=== PATIENT | male | born 1935 | race African-American/Black ===

== ENCOUNTER 2019-05-30 00:04 | Emergency (ER) | payer MEDICARE ==
[~2019-05-30] VITALS: Ht 170.2 cm; Wt 88.0 kg
[~2019-05-30 00:04] MED LIST: FAMO20TA5 PO
--- NOTE | 2019-05-30 02:27 | PHYS DOC ---
Past Medical History Past Medical History: High Cholesterol, Hypertension Past Surgical History: No Surgical History, Other Additional Past Surgical Histo: colonoscopy with polyp removal Smoking Status: Never Smoker Alcohol Use: Rarely Drug Use: None Adult General Chief Complaint Chief Complaint: Insomnia HPI HPI Patient is a 84 year old male with history of hypertension and dyslipidemia who presents with complaint of not able to fall asleep. Patient states he tried to sleep on the couch at 2100 last night and was not able to fall asleep because his left shoulder had pain and he did not have any Tylenol at home and decided to come to the hospital. Patient denies chest pain, shortness of breath, injury, focal neuro deficit, history of insomnia of the same problem, fever and chills, URI symptoms. Review of Systems Review of Systems Constitutional: Denies fever or chills [] Eyes: Denies change in visual acuity, redness, or eye pain [] HENT: Denies nasal congestion or sore throat [] Respiratory: Denies cough or shortness of breath [] Cardiovascular: No additional information not addressed in HPI [] GI: Denies abdominal pain, nausea, vomiting, bloody stools or diarrhea [] : Denies dysuria or hematuria [] Musculoskeletal: Denies back pain or joint pain [] Integument: Denies rash or skin lesions [] Neurologic: Denies headache, focal weakness or sensory changes [] Endocrine: Denies polyuria or polydipsia [] All other systems were reviewed and found to be within normal limits, except as documented in this note. Current Medications Current Medications Current Medications Medications (Trade) Dose Ordered Sig/Beau Start Time Stop Time Status Last Admin Dose Admin Acetaminophen (Tylenol) 1,000 mg 1X ONCE 05/30/19 02:30 05/30/19 02:33 DC 05/30/19 02:47 1,000 MG Allergies Allergies Allergies Coded Allergies Type Severity Reaction Last Updated Verified Penicillins Allergy Intermediate RASH 10/26/14 Yes Physical Exam Physical Exam Constitutional: Well developed, well nourished, no acute distress, non-toxic appearance. [] HENT: Normocephalic, atraumatic, bilateral external ears normal, oropharynx moist, no oral exudates, nose normal. [] Eyes: PERRLA, EOMI, conjunctiva normal, no discharge. [] Neck: Normal range of motion, no tenderness, supple, no stridor. [] Cardiovascular:Heart rate regular rhythm, no murmur [] Lungs & Thorax: Bilateral breath sounds clear to auscultation [] Extremities: No tenderness, no cyanosis, no clubbing, ROM intact, no edema. [] Neurologic: Alert and oriented X 3, normal motor function, normal sensory function, no focal deficits noted. [] Psychologic: Affect normal, judgement normal, mood normal. [] Current Patient Data Vital Signs Vital Signs Date Time Temp Pulse Resp B/P (MAP) Pulse Ox O2 Delivery O2 Flow Rate FiO2 05/30/19 00:43 98.6 84 12 148/77 (100) 96 Room Air 98.6 EKG EKG EKG interpreted by me. EKG at 0242 showed normal sinus rhythm at rate of 84, normal CT and QT intervals, right bundle branch block, RVH, no acute ST and T wave elevation. Radiology/Procedures Radiology/Procedures [] Course & Med Decision Making Course & Med Decision Making Pertinent Labs and Imaging studies reviewed. (See chart for details) Evaluation of patient inertial 84-year-old male patient with complaining of unable to fall asleep without history of insomnia. Patient denied other symptoms except for pain of the left shoulder before going to bed and running out of Tylenol. Patient denied chest pain or shortness of breath and focal neuro deficit. EKG did not show acute finding. Patient was advised to follow- up with primary care physician for evaluation of insomnia and prescription for few hydroxyzine was given. I've spoken with the patient and/or caregivers. I've explained the patient's condition, diagnosis and treatment plan based on information available to me at this time. I've answered the patient's and/or caregivers questions and addressed any concerns. The patient and/or caregivers have a good understanding the patient's diagnosis, condition and treatment plan as can be expected at this point. Vital signs have been stabilized. The patient's condition is stable for discharge from the emergency department. The patient will pursue further outpatient evaluation with her primary care provider or other designated consulting physician as outlined in the discharge instructions. Patient and/or caregivers are agreeable to this plan of care and follow-up instructions have been explained in detail. The patient and/or ca regivers have received these instructions in written format and expressed understanding of these discharge instructions. The patient and her caregivers are aware that if any significant change in condition or worsening of symptoms should prompt him to immediately return to this of the closest emergency department. If an emergent department is not readily available I would encourag e him to call 911. Leopoldo Disclaimer Leopoldo Disclaimer This electronic medical record was generated, in whole or in part, using a voice recognition dictation system. Departure Departure Impression: Primary Impression: Insomnia Disposition: HOME, SELF-CARE (At 0 244) Condition: STABLE Referrals: AIDAN BARBOSA (PCP) Patient Instructions: Insomnia Additional Instructions: Take [id number] Tylenol as needed for pain Follow-up with your primary care physician in 2-3 days for evaluation of sleep problem Return to ER if not getting better Thank you for visiting [facility]. We appreciate you trusting us with your care. If any additional problems come up don't hesitate to return to visit us. Please follow up with your primary care provider so they can plan additional care if needed and know about the problem that you had. If symptoms worsen come back to the Emergency Department. Any concerning symptoms that start such as chest pain, shortness of air, weakness or numbness on one side of the body, running high fevers or any other concerning symptoms return to the ER. Scripts Hydroxyzine Hcl (HYDROXYZINE HCL) 25 Mg Tablet 1 TAB PO QHS PRN for itching, #5 TAB Prov: TRICIA NEW MD 05/30/19 Problem Qualifiers Primary Impression: Insomnia Insomnia type: unspecified Qualified Codes: G47.00 - Insomnia, unspecified TRICIA NEW MD May 30, 2019 02:27
[2019-05-30] MEDS ORDERED: HYDR25TA PO (02:47)
[2019-05-30] MEDS: ACETAMINOPHEN 500 MG TABLET PO ONE (02:47)
[2019-05-30 03:07] VITALS: BP 163/72
--- NOTE | 2019-05-30 05:15 | EKG ---
[facility] [address] [place] [address] Test Date: 2019-05-30 Test Time: 02:42:22 Pat Name: ALISON DOMÍNGUEZ Department: Room: Gender: M [employer] Research Technician: : [id number] Requested By: TRICIA NEW Order Number: [id number] Reading MD: Measurements Intervals [place] Rate: 84 P: 48 OK: 156 QRS: 72 QRSD: 126 T: 21 QT: 366 QTc: 436 Interpretive Statements SINUS RHYTHM RIGHT BUNDLE BRANCH BLOCK RVH WITH REPOLARIZATION ABNORMALITY ABNORMAL ECG RI6.01 No previous ECG available for comparison
== END 2019-05-30 03:08 | disposition home or self-care (01) ==
LOC: ER 00:04
DX: G47.00 Insomnia, unspecified (principal); E78.00 Pure hypercholesterolemia, unspecified; I10 Essential (primary) hypertension; Z98.890 Other specified postprocedural states; Z88.0 Allergy status to penicillin
CPT/HCPCS: 93005; 99283

== ENCOUNTER → 2020-07-14 | Outpatient (CLI) | payer MEDICARE ==
[2020-05-22 15:00] VITALS: BP 186/78
[~2020-07-14] MED LIST changes: +HYDR-2761 PO; +HYDR12.58 PO; +HYDR25TA PO; +IOHEXOL 180 MG/ML 10 ML VIAL. ONE; +LISI20TA18 PO; +LOVA20TA2 PO; +MELA1TAB44 PO; +METO-239 PO; +SERT-267 PO; +TAMS0.4C97 PO; +TERA5CAP3 PO; +methylPREDNISolone ACETATE 40 MG/ML VIAL. ONE; +methylPREDNISolone ACETATE 80 MG/ML VIAL. ONE
--- NOTE | 2020-07-14 11:19 | PDOC4 ---
PROCEDURE Procedure Patient was consented for lumbar epidural steroid injection. Risks were dis cussed including but not limited to: Bleeding, infection, possibility of epidural hematoma and subsequent neurological compromise, dural puncture, headaches, spinal cord and/or nerve damage, side effects of steroid medication, and poor results regarding pain control. Patient understands and wished to proceed. Procedure is lumbar epidural steroid injection under local anesthetic using sterile prep and drape at the L5-S1 level using C-arm fluoroscopic guidance in both AP and lateral views medications injected is 120 mg Depo-Medrol +10mL preservative-free normal saline and 2 mL contrast- condition at discharge is stable patient tolerated procedure well had no complications. PRASANTH MAY MD July 14, 2020 11:19
--- NOTE | 2020-07-14 11:19 | PDOC1 ---
INITIAL PAIN CONSULT DATE OF SERVICE: DOS: DATE: 07/14/20 TIME: 11:14 CHIEF COMPLAINT: Chief Complaint: Low back and right lower extremity pain HISTORY OF PRESENT ILLNESS: 85-year-old male presents with history of pain low back right lower extremity with walking for about the past month not result of any specific injury or accident that he is aware of is getting worse in the right low back in the posterior gluteus posterior thigh posterior calf especially is where the pain present in the calf itself patient has had full work-up with ultrasound as well as neurosurgical consultation MRI scan and CT scan lumbar spine MRI showing L5- S1 disc bulge and a left-sided synovial cyst with gap measuring 0.8 x 2.7 cm with severe canal narrowing. Patient MRI shows nerve root compression moderate right and mild left neuroforaminal narrowing at the L5-S1 level. Patient reports is worse with walking and standing much better with sitting or laying down generally does not awaken from sleep at night does not affect his bowel bladder control but does affect his ability to walk significantly patient is doing some exercising and stretching which tends to help the pain but only mini reuben patient rates his disability rating 0-10 10 being worst is a 6-7 with family home responsibilities 7-8 with recreation social activity occupation sexual behavior life support activities and self-care activities. Patient been taking [id number] Motrin which does help mildly as well. Patient reports no loss of motor function but significant fatigability with standing walking patient can rest for about 5 to 10 minutes after he sits down the pain is gone and the cycle starts again when he begins walking. PAST MEDICAL HISTORY: PMH: Arthritis, hypertension PREVIOUS SURGERIES: Past Surgical Hx: None CURRENT MEDICATIONS: Current Meds: Active Scripts Medications Dose Route/Sig Max Daily Dose Days Date Category Melatonin 1 Mg Tablet 1 Tab PO QHS 30 07/14/20 Reported Flomax (Tamsulosin Hcl) 0.4 Mg Cap.er.24h 0.4 Mg PO QHS 90 05/22/20 Rx Terazosin Hcl 5 Mg Capsule 5 Mg PO DAILY 05/20/20 Reported Metoprolol Succinate ( Xl ) (Metoprolol Succinate) 25 Mg Tab.er.24h 50 Mg PO DAILY 05/20/20 Reported Hydrochlorothiazide Tablet (Hydrochlorothiazide) 12.5 Mg Tablet 12.5 Mg PO QAM 05/20/20 Reported Lisinopril 20 Mg Tablet 20 Mg PO DAILY 05/20/20 Reported Lovastatin 20 Mg Tablet 20 Mg PO QHS 05/20/20 Reported ALLERGIES; Allergies: Coded Allergies: Penicillins (Verified Allergy, Intermediate, RASH, 10/26/14) aspirin (Verified Adverse Reaction, Mild, Nausea, 07/14/20) FAMILY HISTORY: Family Hx: No major medical problems that he is aware of SOCIAL HISTORY: Social Hx: Patient is nondrug alcohol does not smoke not use any illegal illicit recreational drugs is single lives locally in [facility] and reports he is currently retired. REVIEW OF SYSTEMS: ROS: Positive for those items mentioned in history of present illness, all systems are reviewed, otherwise negative ,and are complete full and well-documented on patient's chart. PHYSICAL EXAM: VS: Blood pressure is 160/77 pulse 69 respirations 18 temperature 98.6 F height is 5 foot 7 and half inches weight is 185 pounds PE: PHYSICAL EXAMINATION: GENERAL: The patient is awake, alert, oriented, appropriate, very pleasant demeanor HEENT: Shows normocephalic, atraumatic. Extraocular movements are intact and symmetrical. Oral cavity: Mucous membranes moist and pink. Dentition is intact. NECK: Shows anterior throat supple without palpable lymphadenopathy noted. Swallow reflex symmetrical. CHEST: Shows normal on inspection. Breath sounds are clear bilaterally, no rales rhonchi wheezes auscultated. HEART: Shows S1, S2 clear. No murmurs auscultated. ABDOMEN: Soft, nontender, nondistended, obese. No palpable organomegaly is noted. No rebound or guarding demonstrated. BACK: Shows spine grossly in the midline. Normal-appearing cervical lordotic curvature. There is slightly increased thoracic kyphosis, some flattening of the lumbar lordotic curvature. No previous surgical scarring is noted. Lumbar paraspinous muscles show symmetrical on inspection, on palpation shows some moderate tenderness diffusely throughout the upper, middle and lower distribution of the paraspinous muscles bilaterally and also into the lower thoracic paraspinous musculature, firm and tender, but without specific trigger points, without radiation of pain. The patient has good rotational motion of the lumbar spine, both laterally as well as extension and flexion without significant difficulty. No tenderness over the spinous processes, sacrum or sacroiliac regions. EXTREMITIES: Lower extremities show deep tendon reflexes 2+ in the patellar and tendo calcaneus tendons. Motor exam is 5 on a scale of 5 with right dorsif lexion, extension, quadriceps and hamstring flexion and 5/5 on the left. Peripheral pulses are 1+ posterior tibial. No peripheral edema is noted bilaterally. Lower extremities are warm and dry to touch, equal in color and appearance. Straight leg raise noted to be positive on the right about 45 degrees, left side is negative. Gaenslen's and Zeus's maneuvers are negative bilaterally as well. The patient is able to stand, stand on his toes without significant difficulty or loss of balance, walks with a slight favoring gait does appear to favor the right lower extremity however is not using any assistive device such as canes or walkers to ambulate. SKIN: Shows warm and dry, good turgor. No edema. No sores, rashes or bruising throughout. IMPRESSION: Impression: 85-year-old male with 1 month history increasing pain low back right lower extremity radicular fashion MRI scan lumbar spine as noted Arthritis Hypertension Plan: Options were discussed with the patient including conservative medical management physical therapies and interventional techniques. Patient elects interventional techniques, we discussed a lumbar epidural steroid injection using descriptions as well as anatomical models described procedure. Risks were discussed including but not limited to: Bleeding, infection, possibility of epidural hematoma and subsequent neurological compromise, dural puncture, headaches, spinal cord and/or nerve damage, side effects of steroid medication, and poor results regarding pain control. Patient understands and wished to proceed. Patient will return to clinic in approximately 2 weeks for follow-up, was counseled as return appointment, activity level, and side effects to be aware of. Procedure is lumbar epidural steroid injection under local anesthetic using sterile prep and drape at the 5 S1 level using C-arm fluoroscopic guidance in both AP and lateral views medications injected is 120 mg Depo-Medrol +10mL preservative-free normal saline and 2 mL contrast- condition at discharge is stable patient tolerated procedure well had no complications. PRASANTH MAY MD July 14, 2020 11:19
== END | disposition home or self-care (01) ==
LOC: PNCL 09:48
PROVIDERS: ATTEND Anesthesiology
DX: M54.5 Low back pain (principal); M79.604 Pain in right leg; M19.90 Unspecified osteoarthritis, unspecified site; I10 Essential (primary) hypertension; E78.00 Pure hypercholesterolemia, unspecified; N40.0 Benign prostatic hyperplasia without lower urinary tract symptoms; F41.9 Anxiety disorder, unspecified; Z79.899 Other long term (current) drug therapy; Z98.890 Other specified postprocedural states; Z88.0 Allergy status to penicillin; Z88.8 Allergy status to other drugs, medicaments and biological substances
CPT/HCPCS: 62323; J1030; J1040; Q9965

== ENCOUNTER → 2020-07-28 | Outpatient (CLI) | payer MEDICARE ==
[2020-05-22 15:00] VITALS: BP 186/78
--- NOTE | 2020-07-28 11:22 | PDOC ---
Progress Note - Pain Clinic Date of Service: DOS: DATE: 07/28/20 TIME: 11:19 Diagnosis: Dx: Lumbar radiculopathy with lumbar degenerative disc disease and lumbar spinal stenosis History or Present Illness: HPI: 85-year-old male returns for follow-up status post lumbar epidural steroid injection x1. Patient reports about 70% improvement in low back and right lower extremity pain patient reports still some pain in the low back and right leg but much better than it was he is increase his activity distance walking household activities travel with greater ease and comfort sleeping better at night as well. Patient reports no new motor or sensory deficits describes the pain as 8 on scale 10 is worse over the past week 8 on average 7 its least is 8 today patient describes sharp and tingling burning at times worse in the morning off-and-on intensity better with sitting or laying down worse with walking isidro ding and weightbearing. Patient reports no new motor or sensory deficits no new bowel or bladder incontinence or other complaints. Physical Exam: VS: Blood pressure is 164/80 pulse 63 respirations 18 temperature is 98.3 F height is 5 feet 7 inches weight is 186 pounds PE: PHYSICAL EXAMINATION: GENERAL: The patient is awake, alert, oriented, appropriate, very pleasant demeanor HEENT: Shows normocephalic, atraumatic. Extraocular movements are intact and symmetrical. Oral cavity: Mucous membranes moist and pink. NECK: Shows anterior throat supple without palpable lymphadenopathy noted. Swallow reflex symmetrical. CHEST: Shows normal on inspection. Breath sounds are clear bilaterally. HEART: Shows S1, S2 clear. No murmurs auscultated. ABDOMEN: Soft, nontender, nondistended, obese. No palpable organomegaly is noted. BACK: Shows spine grossly in the midline. Normal-appearing cervical lordotic curvature. There is slightly increased thoracic kyphosis, some minor flattening of the lumbar lordotic curvature. Lumbar paraspinous muscles show symmetrical on inspection, on palpation shows some moderate tenderness diffusely throughout the upper, middle and lower distribution of the paraspinous muscles without specific trigger points, without radiation of pain. The patient has good rotational motion of the lumbar spine, both laterally as well as extension and flexion without significant difficulty. EXTREMITIES: Lower extremities show deep tendon reflexes 2 in the patellar and tendo calcaneus tendons. Motor exam is 5 on a scale of 5 with right dorsiflexion, extension, quadriceps and hamstring flexion and 5/5 on the left. Peripheral pulses are 1 posterior tibial. No peripheral edema is noted bilaterally. Lower extremities are warm and dry to touch, equal in color and appearance. SKIN: Shows warm and dry, good turgor. No edema. No sores, rashes or bruising throughout. Procedure: Procedure: Options were discussed with the patient. Patient's old chart was reviewed his his current medication regimen updated current review of systems updated today as well. We will proceed with a second in a series lumbar epidural steroid injection today with fluoroscopic guidance. Risks were discussed including but not limited to: Bleeding, infection, possibility of epidural hematoma and subsequent neurological compromise, dural puncture, headaches, spinal cord and/or nerve damage, side effects of steroid medication, and poor results regarding pain control. Patient understands and wished to proceed. Patient will return to the clinic in approximate 2 weeks for follow-up, was counseled as return appointment, activity level, and side effects beware of. Medication Injected: Med Injected: Procedure is lumbar epidural steroid injection under local anesthetic using sterile prep and drape at the L5-S1 level using C-arm fluoroscopic guidance in both AP and lateral views medications injected is 120 mg Depo-Medrol +10mL preservative-free normal saline and 2 mL contrast- condition at discharge is stable patient tolerated procedure well had no complications. Condition at Discharge: Condition at Discharge: Condition at discharge stable, patient tolerated the procedure well and had no complications. PRASANTH MAY MD Jul 28, 2020 11:22
--- NOTE | 2020-07-28 11:23 | PDOC4 ---
PROCEDURE Procedure Patient is consented for lumbar epidural steroid injection. Risks were disc ussed including but not limited to: Bleeding, infection, possibility of epidural hematoma and subsequent neurological compromise, dural puncture, headaches, spinal cord and/or nerve damage, side effects of steroid medication, and poor results regarding pain control. Patient understands and wished to proceed. Procedure is lumbar epidural steroid injection under local anesthetic using sterile prep and drape at the L5-S1 level using C-arm fluoroscopic guidance in both AP and lateral views medications injected is 120 mg Depo-Medrol +10mL preservative-free normal saline and 2 mL contrast- condition at discharge is stable patient tolerated procedure well had no complications. PRASANTH MAY MD Jul 28, 2020 11:23
== END | disposition home or self-care (01) ==
LOC: PNCL 09:56
PROVIDERS: ATTEND Anesthesiology
DX: M51.16 Intervertebral disc disorders with radiculopathy, lumbar region (principal); M48.061 Spinal stenosis, lumbar region without neurogenic claudication; I10 Essential (primary) hypertension; E78.00 Pure hypercholesterolemia, unspecified; N40.0 Benign prostatic hyperplasia without lower urinary tract symptoms; F41.9 Anxiety disorder, unspecified; Z79.899 Other long term (current) drug therapy; Z88.0 Allergy status to penicillin; Z88.8 Allergy status to other drugs, medicaments and biological substances
CPT/HCPCS: 62323; J1030; J1040; Q9965

== ENCOUNTER 2020-10-20 09:46 | Inpatient (IN) | payer MEDICARE ==
[~2020-10-20] VITALS: Ht 171.4 cm; Wt 78.1 kg
[~2020-10-20 09:46] MED LIST changes: -IOHEXOL 180 MG/ML 10 ML VIAL. ONE; -methylPREDNISolone ACETATE 40 MG/ML VIAL. ONE; -methylPREDNISolone ACETATE 80 MG/ML VIAL. ONE
[2020-10-20] MEDS ORDERED: IV RINGERS,LACTATED 1000ML 1,000 ML IV SCH (10:15)
[2020-10-20 10:25] LABS: BASO # 0.1 x10^3/uL (0.0-0.2); BASO % 1 % (0-3); EOS % 0 % (0-3); HEMATOCRIT 42.8 % (39.0-53.0); LYMPH # 1.2 x10^3/uL (1.0-4.8); LYMPH % 13 % (24-48); MEAN CORPUSCULAR HEMOGLOBIN 24 pg (25-35); MEAN CORPUSCULAR HGB CONC 33 g/dL (31-37); MEAN CORPUSCULAR VOLUME 74 fL (79-100); MONO # 1.3 x10^3/uL (0.0-1.1); MONO % 15 % (0-9); NEUT # 6.3 x10^3/uL (1.8-7.7); NEUT % 71 % (31-73); PLATELET COUNT 294 x10^3/uL (140-400); RED BLOOD COUNT 5.83 x10^6/uL (4.30-5.70); RED CELL DISTRIBUTION WIDTH 14.8 % (11.5-14.5); WHITE BLOOD COUNT 8.9 x10^3/uL (4.0-11.0)
--- NOTE | 2020-10-20 10:29 | PHYS DOC ---
Past Medical History Past Medical History: Anxiety, Depression, High Cholesterol, Hypertension Additional Past Medical Histor: Enlarged prostate Past Surgical History: No Surgical History, Other Additional Past Surgical Histo: colonoscopy with polyp removal Smoking Status: Never Smoker Alcohol Use: None Drug Use: None General Adult EDM: Chief Complaint: PAIN ON URINATION HPI: HPI: 85-year-old male with a history of UTI requiring inpatient admission in April 2020 presents the emergency department complaining of difficulty with urination for the past several weeks. He denies any abdominal pain or suprapubic pain with this difficulty with urination. Upon triage vitals, he was found to be tachycardic into the 150s to 160s. He denies any chest pain, palpitations, shortness of breath, syncope, fatigue or any other symptom. Review of Systems: Review of Systems: Constitutional: Denies fever or chills. Eyes: Denies change in vision, pain. HENT: Denies congestion or sore throat. Respiratory: Denies cough or shortness of breath. Cardiovascular: Denies chest pain or edema. GI: Denies abdominal pain, nausea. : Admits to dark urine, difficulty with urination, denies blood. Musculoskeletal: Denies extremity pain, or trauma. Skin: Denies rash, skin change. Neurologic: Denies headache, focal weakness. Psychiatric: Denies depression or anxiety. All other systems reviewed as negative except for what was mentioned in the HPI. Heart Score: C/O Chest Pain: No Allergies: Allergies: Allergies Coded Allergies Type Severity Reaction Last Updated Verified Penicillins Allergy Intermediate RASH 10/26/14 Yes aspirin Adverse Reaction Mild Nausea 07/14/20 Yes Physical Exam: PE: Constitutional: No acute distress, non-toxic appearance. HENT: Atraumatic, bilateral external ears normal, nose normal. Eyes: PERRLA, EOMI, conjunctiva normal, no discharge. Neck: Normal range of motion, supple, no stridor. Cardiovascular: Heart tachycardic and regular, 2+ radial pulses Lungs & Thorax: No respiratory distress, symmetrical expansion. Bilateral breath sounds clear to auscultation Abdomen: Soft, no tenderness Skin: Warm, dry. Extremities: No tenderness, no cyanosis, ROM intact, no edema. Neurologic: Alert and oriented X 3, normal motor function, normal sensory function, no focal deficits noted. Non ataxic gait. GCS 15. Psychologic: Affect normal, judgment normal, mood normal. Current Patient Data: Labs: Laboratory Tests Test 10/20/20 10:13 10/20/20 10:20 White Blood Count 8.9 x10^3/uL (4.0-11.0) Red Blood Count 5.83 x10^6/uL (4.30-5.70) Hemoglobin 14.0 g/dL (13.0-17.5) Hematocrit 42.8 % (39.0-53.0) Mean Corpuscular Volume 74 fL (79-100) Mean Corpuscular Hemoglobin 24 pg (25-35) Mean Corpuscular Hemoglobin Concent 33 g/dL (31-37) Red Cell Distribution Width 14.8 % (11.5-14.5) Platelet Count 294 x10^3/uL (140-400) Neutrophils (%) (Auto) 71 % (31-73) Lymphocytes (%) (Auto) 13 % (24-48) Monocytes (%) (Auto) 15 % (0-9) Eosinophils (%) (Auto) 0 % (0-3) Basophils (%) (Auto) 1 % (0-3) Neutrophils # (Auto) 6.3 x10^3/uL (1.8-7.7) Lymphocytes # (Auto) 1.2 x10^3/uL (1.0-4.8) Monocytes # (Auto) 1.3 x10^3/uL (0.0-1.1) Eosinophils # (Auto) 0.0 x10^3/uL (0.0-0.7) Basophils # (Auto) 0.1 x10^3/uL (0.0-0.2) Sodium Level 138 mmol/L (136-145) Potassium Level 3.9 mmol/L (3.5-5.1) Chloride Level 99 mmol/L (98-107) Carbon Dioxide Level 28 mmol/L (21-32) Anion Gap 11 (6-14) Blood Urea Nitrogen 36 mg/dL (8-26) Creatinine 1.4 mg/dL (0.7-1.3) Estimated GFR (Cockcroft-Gault) 58.3 Glucose Level 146 mg/dL (70-99) Calcium Level 9.2 mg/dL (8.5-10.1) Magnesium Level 2.6 mg/dL (1.8-2.4) Troponin I Quantitative 0.075 ng/mL (0.000-0.055) JR-Ams-J-Type Natriuretic Peptide 5459 pg/mL (0-449) Thyroid Stimulating Hormone (TSH) 0.694 uIU/mL (0.358-3.74) Urine Collection Type U cath Urine Color Jahaira Urine Clarity Turbid Urine pH 8.0 (<5.0-8.0) Urine Specific [place] 1.015 (1.000-1.030) Urine Protein >=300 mg/dL (NEG-TRACE) Urine Glucose (UA) Negative mg/dL (NEG) Urine Ketones (Stick) 15 mg/dL (NEG) Urine Blood Moderate (NEG) Urine Nitrite Positive (NEG) Urine Bilirubin Negative (NEG) Urine Urobilinogen Dipstick 1.0 mg/dL (0.2 mg/dL) Urine Leukocyte Esterase Large (NEG) Urine RBC Field obscured /HPF (0-2) Urine WBC Tntc /HPF (0-4) Urine Squamous Epithelial Cells None /LPF Urine Bacteria Few /HPF (0-FEW) Vital Signs: Vital Signs Date Time Temp Pulse Resp B/P (MAP) Pulse Ox O2 Delivery O2 Flow Rate FiO2 10/20/20 09:52 98.2 163 17 130/84 (114) 98 Room Air 98.2 EKG: EK: Atrial flutter rate of 161, [No ST-T wave changes], occasional PVC. Impression: Atrial flutter with 2-1 conduction interpreted by nv, Zeus Reyes D.O. also discussed with on-call billet driller Dr. Arteaga 1132: Atrial flutter rate of 97, appears to be 3 1 conduction. No further ischemic signs. No STEMI Radiology/Procedures: Radiology/Procedures: PROCEDURE: PORTABLE CHEST 1V EXAM: Chest, single view. HISTORY: Supraventricular tachycardia. COMPARISON: 10/26/2014 FINDINGS: A frontal view of the chest is obtained. There is no infiltrate, pleural effusion or pneumothorax. There is cardiomegaly. IMPRESSION: Cardiomegaly. Electronically signed by: Christina Morgan MD (10/20/2020 10:35 AM) Course & Med Decision Making: Course & Med Decision Making Patient was found to be in 2-1 atrial flutter upon initial EKG. I consulted the billet driller Dr. Arteaga who believes that this is a flutter. Patient was given diltiazem which transiently lowered his heart rate down to 120. His blood pressure remained stable. He was given an additional bolus of diltiazem which dropped his heart rate to 100s and then he eventually went back up to the 150s. Repeat EKG shows further atrial flutter pattern as above. Patient was given metoprolol 5 mg IV bolus with heart rate down to 100. I discussed the case with Dr. Evangelista who will admit the patient to the hospital. Patient was also given antibiotics (Levaquin) for urinary tract infection which per chart review patient was admitted to the hospital in April of this year for. Patient was asymptomatic from his atrial flutter and did not have any episodes of chest pain or typical symptoms for ACS. Troponin elevation is likely secondary to tachycardia and demand ischemia Critical care time was 35 minutes which includes time at bedside, spent in discussion of patient's care with specialists and/or family members, with interpretation of laboratory and/or radiological studies and is exclusive of procedures. My Orders - ZEUS REYES DO Procedure Category Date Status Time Basic Metabolic Panel LAB 10/20/20 Complete 10:13 Cbc W Autodiff LAB 10/20/20 Complete 10:13 Magnesium LAB 10/20/20 Complete 10:13 Thyroid Stim Hormone LAB 10/20/20 Complete (Tsh) 10:13 Portable Chest 1v RAD 10/20/20 Resulted 10:13 Nt-Pro Bnp LAB 10/20/20 Complete 10:13 Troponini LAB 10/20/20 Complete 10:13 Troponini LAB 10/20/20 Logged 13:13 Troponini LAB 10/20/20 Logged 16:13 Iv Ringers,Lactated PHA 10/20/20 Complete 1000ml (Iv Lactated 10:15 Suh Cath Insertion ER 10/20/20 Transmitted Diltiazem Iv Push PHA 10/20/20 Complete (Cardizem Iv Push) 10:30 Cardiology Consult CONS 10/20/20 Transmitted 10:23 Ua, Cult If Indicated LAB 10/20/20 Complete 10:29 Diltiazem Iv Push PHA 10/20/20 Complete (Cardizem Iv Push) 11:00 Diltiazem Iv Push PHA 10/20/20 Complete (Cardizem Iv Push) 11:00 Urine Culture TABITHA 8/24/21 In Process 10:59 Levofloxacin Per PHA 10/20/20 In Process Pharmacy (Levaquin Per 11:15 Levofloxacin 250mg PHA 10/20/20 In Process Premix (Levaquin 250m 12:00 Diltiazem Hcl PHA 10/20/20 In Process (Cardizem) 12:00 Metoprolol Iv Push PHA 10/20/20 Complete (Lopressor Vial) 12:00 Departure Departure Impression: Primary Impression: Atrial flutter with rapid ventricular response Additional Impression: UTI (urinary tract infection) Disposition: ADMITTED INPATIENT Admitting Physician: JOSE (Jean Carlos) Condition: IMPROVED Referrals: AIDAN BARBOSA (PCP) ZEUS REYES DO Oct 20, 2020 10:29
[2020-10-20 10:36] LABS: CALCIUM 9.2 mg/dL (8.5-10.1); CREATININE 1.4 mg/dL (0.7-1.3); GFR 58.3; MAGNESIUM 2.6 mg/dL (1.8-2.4); POTASSIUM 3.9 mmol/L (3.5-5.1)
--- NOTE | 2020-10-20 10:37 | RAD ---
EXAM: Chest, single view. HISTORY: Supraventricular tachycardia. COMPARISON: 10/26/2014 FINDINGS: A frontal view of the chest is obtained. There is no infiltrate, pleural effusion or pneumo thorax. There is cardiomegaly. IMPRESSION: Cardiomegaly. Electronically signed by: Christina Morgan MD (10/20/2020 10:35 AM) [id number]
[2020-10-20 10:45] LABS: BILIRUBIN,URINE NEGATIVE (NEG); CLARITY,URINE TURBID; COLOR,URINE AMBER; NITRITE,URINE POSITIVE (NEG); PROTEIN,URINE >=300 mg/dL (NEG-TRACE)
[2020-10-20 10:58] LABS: RBC,URINE FIELD OBSCURED /HPF (0-2); WBC,URINE TNTC /HPF (0-4)
[2020-10-20 10:59] LABS: BACTERIA,URINE FEW /HPF (0-FEW)
[2020-10-20] MEDS ORDERED: levOFLOXacin PER PHARMACY. MC PRN (11:15)
[2020-10-20] MEDS ORDERED: METOPROLOL IV PUSH 5 MG/5 ML VIAL. IVP ONE ×2 (12:00→16:30)
--- NOTE | 2020-10-20 12:22 | PDOC2 ---
[facility] S[facility] LINE 10/20/20 1221: CARDIAC CONSULT DATE OF CONSULT Date of Consult DATE: 10/20/20 TIME: 12:20 REASON FOR CONSULT Reason for Consult: aflutter REFERRING PHYSICIAN Referring Physician: Dr. Reyes SOURCE Source: Chart review, Patient HISTORY OF PRESENT ILLNESS HISTORY OF PRESENT ILLNESS This is an 85 yo male who presented secondary to difficulty urinating for the last couple of weeks. Was noted in a-flutter with RVR upon arrival, which prompted this consult. Patient denies any chest pain, palpitations, dizziness, diaphoresis. Denies any history of AFIB. Had event monitor in 2019 that did not show any AFIB/flutter. PAST MEDICAL HISTORY Cardiovascular: HTN, Hyperlipidemia Psych: Anxiety Renal/: Benign prostatic enlarg. PAST SURGICAL HISTORY Past Surgical History: No pertinent history FAMILY HISTORY Family History: Hypertension SOCIAL HISTORY Smoke: Quit ALCOHOL: none Drugs: None Lives: Alone CURRENT MEDICATIONS CURRENT MEDICATIONS Current Medications Medications (Trade) Dose Ordered Sig/Beau Route PRN Reason Start Time Stop Time Status Last Admin Dose Admin Ringer's Solution 1,000 ml @ 1,000 mls/hr Q1H IV 10/20/20 10:15 10/20/20 11:14 DC 10/20/20 10:35 Diltiazem HCl (Cardizem Iv Push) 10 mg 1X ONCE IVP 10/20/20 10:30 10/20/20 10:31 DC 10/20/20 10:37 Diltiazem HCl (Cardizem Iv Push) 15 mg 1X ONCE IVP 10/20/20 11:00 10/20/20 11:01 DC 10/20/20 11:20 Levofloxacin/ Dextrose 50 ml @ 50 mls/hr Q24H IV 10/20/20 12:00 10/20/20 12:07 Metoprolol Tartrate (Lopressor Vial) 5 mg 1X ONCE IVP 10/20/20 12:00 10/20/20 12:01 DC 10/20/20 12:07 ALLERGIES ALLERGIES: Coded Allergies: Penicillins (Verified Allergy, Intermediate, RASH, 10/26/14) aspirin (Verified Adverse Reaction, Mild, Nausea, 07/14/20) ROS Review of System 14 point ROS conducted with pertinent positives noted above in HPI PHYSICAL EXAM General: Alert, Oriented X3, Cooperative, No acute distress HEENT: Atraumatic Lungs: Clear to auscultation Heart: Other (aflutter) Abdomen: Soft, No tenderness Extremities: No edema, Normal pulses Skin: No significant lesion Neuro: Normal speech, Sensation intact Psych/Mental Status: Mental status NL, Mood NL MUSCULOSKELETAL: Osteoarthritic changes both hands VITALS/I&O VITALS/I&O: Vital Signs Date Time Temp Pulse Resp B/P (MAP) Pulse Ox O2 Delivery O2 Flow Rate FiO2 10/20/20 12:07 121 144/65 10/20/20 11:25 20 96 10/20/20 09:52 98.2 Room Air 98.2 LABS Lab: Laboratory Tests Test 10/20/20 10:13 10/20/20 10:20 White Blood Count 8.9 x10^3/uL (4.0-11.0) Red Blood Count 5.83 x10^6/uL (4.30-5.70) H Hemoglobin 14.0 g/dL (13.0-17.5) Hematocrit 42.8 % (39.0-53.0) Mean Corpuscular Volume 74 fL (79-100) L Mean Corpuscular Hemoglobin 24 pg (25-35) L Mean Corpuscular Hemoglobin Concent 33 g/dL (31-37) Red Cell Distribution Width 14.8 % (11.5-14.5) H Platelet Count 294 x10^3/uL (140-400) Neutrophils (%) (Auto) 71 % (31-73) Lymphocytes (%) (Auto) 13 % (24-48) L Monocytes (%) (Auto) 15 % (0-9) H Eosinophils (%) (Auto) 0 % (0-3) Basophils (%) (Auto) 1 % (0-3) Neutrophils # (Auto) 6.3 x10^3/uL (1.8-7.7) Lymphocytes # (Auto) 1.2 x10^3/uL (1.0-4.8) Monocytes # (Auto) 1.3 x10^3/uL (0.0-1.1) H Eosinophils # (Auto) 0.0 x10^3/uL (0.0-0.7) Basophils # (Auto) 0.1 x10^3/uL (0.0-0.2) Sodium Level 138 mmol/L (136-145) Potassium Level 3.9 mmol/L (3.5-5.1) Chloride Level 99 mmol/L (98-107) Carbon Dioxide Level 28 mmol/L (21-32) Anion Gap 11 (6-14) Blood Urea Nitrogen 36 mg/dL (8-26) H Creatinine 1.4 mg/dL (0.7-1.3) H Estimated GFR (Cockcroft-Gault) 58.3 Glucose Level 146 mg/dL (70-99) H Calcium Level 9.2 mg/dL (8.5-10.1) Magnesium Level 2.6 mg/dL (1.8-2.4) H Troponin I Quantitative 0.075 ng/mL (0.000-0.055) RJ-Upx-V-Type Natriuretic Peptide 5459 pg/mL (0-449) H Thyroid Stimulating Hormone (TSH) 0.694 uIU/mL (0.358-3.74) Urine Collection Type U cath Urine Color Jahaira Urine Clarity Turbid Urine pH 8.0 (<5.0-8.0) Urine Specific [place] 1.015 (1.000-1.030) Urine Protein >=300 mg/dL (NEG-TRACE) Urine Glucose (UA) Negative mg/dL (NEG) Urine Ketones (Stick) 15 mg/dL (NEG) Urine Blood Moderate (NEG) Urine Nitrite Positive (NEG) Urine Bilirubin Negative (NEG) Urine Urobilinogen Dipstick 1.0 mg/dL (0.2 mg/dL) Urine Leukocyte Esterase Large (NEG) Urine RBC Field obscured /HPF (0-2) Urine WBC Tntc /HPF (0-4) Urine Squamous Epithelial Cells None /LPF Urine Bacteria Few /HPF (0-FEW) Laboratory Tests 10/20/20 10:13 Laboratory Tests 10/20/20 10:13 ECHOCARDIOGRAM ECHOCARDIOGRAM 06/28/16 - TREADMILL EXERCISE ECHOCARDIOGRAM W/2-D + DOPPLER ECHO Interpretation Summary Baseline Echocardiogram The left ventricle is normal in size and function, estimated ejection fraction is 60%. Mild diastolic dysfunction The right ventricle is normal in size and function. Mild dilated left atrium, moderately dilated right atrium No significant valve disease is identified. Inadequate tricuspid regurgitation signal, unable to accurately estimate PA systolic pressure with this study. Stress Test Fair exercise capacity. Patient reported no symptoms of chest discomfort during exercise or recovery Appropriate blood pressure during stress and recovery, blunted heart rate response (on beta mor) The patient did not reach target of 85% maximum predicted heart rate which limits sensitivity of this study. No diagnostic ST-segment changes during stress or recovery Normal hyperdynamic response of all myocardial segments at peak. Negative exercise stress echo without evidence of inducible ischemia. STRESS TEST STRESS TEST LOW DOSE/HIGH DOSE REST/STRESS REGADENOSON N-13 AMMONIA PET/CT Date 04/23/2019 IMPRESSION Unremarkable rest/ stress N13 ammonia myocardial perfusion PET/CT scan with normal global function and perfusion without evidence of stress induced myocardial ischemia. ASSESSMENT/PLAN ASSESSMENT/PLAN 1. BPH, urinary retention, UTI; as per IM 2. Aflutter with RVR; new finding. Rate better controlled s/p Cardizem, metoprolol. Stress test 04/18 without evidence of ischemia as noted above 3. Mild troponin elevation; initial 0.07. Most probably type II, demand ischemia. CP free 4. Hypertension; controlled 5. Hyperlipidemia 6. JERRY; s/p IVFs 7. Chronic RBBB Recommendations Trend trop Lipids, TSH Echo to assess LV systolic function Increase metoprolol for rate control Lovenox x1 now [id number] 3 correlating with a 3.2% risk for stroke per year. Recommend low dose Eliquis for stroke prophylaxis Supportive care OJ WALSH MD 10/20/20 1838: CARDIAC CONSULT ASSESSMENT/PLAN ASSESSMENT/PLAN The patient was seen and interviewed as well as examined at the bedside. The chart was reviewed. The case was discussed. Agree with the plan of care. WOOD ELDER APRN Oct 20, 2020 12:21 OJ WALSH MD Oct 20, 2020 18:38
[2020-10-20] MEDS ORDERED: DEXTROSE 50% 25 GM / 50ML DISP.SYRIN. IV PRN (15:30)
[2020-10-20] MEDS ORDERED: SENNOSIDES 8.6 MG TABLET PO PRN (15:30)
[2020-10-20] MEDS ORDERED: ONDANSETRON PF 4 MG/2 ML VIAL. IVP PRN (15:30)
[2020-10-20] MEDS ORDERED: DOCUSATE SODIUM 100 MG CAPSULE. PO PRN (15:30)
[2020-10-20] MEDS ORDERED: PROCHLORPERAZINE 10 MG/2 ML VIAL. IV PRN (15:30)
[2020-10-20] MEDS ORDERED: IV NORMAL SALINE 1000ML BAG 1,000 ML IV ONE (15:30)
--- NOTE | 2020-10-20 15:34 | PDOC1 ---
History and Physical Date of Service: DOS: DATE: 10/20/20 TIME: 15:25 Chief Complaint: Chief Complain: Urinary complaints History of Present Illness: HPI: 85-year-old male with past medical history of depression, anxiety, dyslipidemia and BPH who presents to the ED with complaints of difficulty urinating. This has been occurring for the last several weeks. Patient complains of burning upon urination but denies any suprapubic tenderness or abdominal pain. Denies any hematuria, bloody stools, chest pain, shortness of breath or headaches or syncope. Upon arrival to the ED patient was found to have elevated heart rate to the 160s. Telemonitoring and EKG did showed atrial flutter. Cardiology was consulted. Patient was given several doses of diltiazem boluses and there was some improvement down to the 120s. Eventually patient was kept on diltiazem drip. Past Medical/Surgical History: PMH/PSH: Past Medical History: Anxiety, Depression, High Cholesterol, Hypertension, Enlarged prostate Past Surgical History: colonoscopy with polyp removal Allergies: Allergies: Coded Allergies: Penicillins (Verified Allergy, Intermediate, RASH, 10/26/14) aspirin (Verified Adverse Reaction, Mild, Nausea, 07/14/20) Family History: Family History: Reviewed with no relevant findings Social History: Social History: Smoking Status: Never Smoker Alcohol Use: None Drug Use: None Current Medications: Current Medications Current Medications Ringer's Solution 1,000 ml @ 1,000 mls/hr Q1H IV Last administered on 10/20/20at 10:35; Start 10/20/20 at 10:15; Stop 10/20/20 at 11:14; Status DC Diltiazem HCl (Cardizem Iv Push) 10 mg 1X ONCE IVP Last administered on 10/20/20at 10:37; Start 10/20/20 at 10:30; Stop 10/20/20 at 10:31; Status DC Diltiazem HCl (Cardizem Iv Push) 10 mg 1X ONCE IVP ; Start 10/20/20 at 11:00; Stop 10/20/20 at 10:50; Status DC Diltiazem HCl (Cardizem Iv Push) 15 mg 1X ONCE IVP Last administered on 10/20/20at 11:20; Start 10/20/20 at 11:00; Stop 10/20/20 at 11:01; Status DC Levofloxacin/ Dextrose (Levaquin Per Pharmacy) 1 each PRN DAILY PRN [facility] SEE COMMENTS; Start 10/20/20 at 11:15 Levofloxacin/ Dextrose 50 ml @ 50 mls/hr Q24H IV Last administered on 10/20/20at 12:07; Start 10/20/20 at 12:00 Diltiazem HCl 125 mg/Sodium Chloride 125 ml @ 5 mls/hr CONT PRN IV SEE I/O RECORD; Start 10/20/20 at 12:00 Metoprolol Tartrate (Lopressor Vial) 5 mg 1X ONCE IVP Last administered on 10/20/20at 12:07; Start 10/20/20 at 12:00; Stop 10/20/20 at 12:01; Status DC Active Scripts Active Flomax (Tamsulosin Hcl) 0.4 Mg Cap.er.24h 0.4 Mg PO QHS 90 Days Reported Melatonin 1 Mg Tablet 1 Tab PO QHS 30 Days Terazosin Hcl 5 Mg Capsule 5 Mg PO DAILY Metoprolol Succinate ( Xl ) (Metoprolol Succinate) 25 Mg Tab.er.24h 50 Mg PO DAILY Hydrochlorothiazide Tablet (Hydrochlorothiazide) 12.5 Mg Tablet 12.5 Mg PO QAM Lisinopril 20 Mg Tablet 20 Mg PO DAILY Lovastatin 20 Mg Tablet 20 Mg PO QHS ROS: Review of Systems Review of System REVIEW OF SYSTEMS: GENERAL: Denies weakness SKIN: No bruising, hair changes or rashes. EYES: No blurred, double or loss of vision. NOSE AND THROAT: No history of nosebleeds, hoarseness or sore throat. HEART: No history of palpitations, chest pain or shortness of breath on exertion. LUNGS: Denies cough, hemoptysis, wheezing or shortness of breath. GASTROINTESTINAL: Denies changes in appetite, nausea, vomiting, diarrhea or constipation. GENITOURINARY: Positive burning upon urination NEUROLOGIC: Denies history of numbness, tingling, or tremor. PSYCHIATRIC: No history of panic, anxiety or depression. ENDOCRINE: No history of heat or cold intolerance, polyuria or polydipsia. EXTREMITIES: Denies joint pain, pain on walking or stiffness. Physical Exam: Vital Signs: Vital Signs Date Time Temp Pulse Resp B/P (MAP) Pulse Ox O2 Delivery O2 Flow Rate FiO2 8/24/21 12:07 121 144/65 10/20/20 11:25 20 96 10/20/20 09:52 98.2 Room Air 98.2 Physcial Exam: General: Well developed, well nourished, no acute distress, well appearing HEENT: Pupils equally round and reactive to light, EOMI, no discharge, normal conjunctiva Neck: Supple, no nuchal rigidity, no JVD, trachea midline, no tenderness Cardiac: RRR, no murmurs, no gallops, no rubs. Rapid heart rate Chest/Lungs: CTAB, no wheeze, no rhonchi, no crackles Abdomen: soft, non-distended, no guarding, no peritoneal signs, non-tender Back: No tenderness Extremities: no edema, pulses intact, non-tender,capillary refill <3 sec bilateral upper and lower extremities, Neuro: Alert and oriented x 4, no focal deficits, normal speech Labs: Labs: Laboratory Tests Test 10/20/20 10:13 10/20/20 10:20 10/20/20 14:00 White Blood Count 8.9 x10^3/uL (4.0-11.0) Red Blood Count 5.83 x10^6/uL (4.30-5.70) Hemoglobin 14.0 g/dL (13.0-17.5) Hematocrit 42.8 % (39.0-53.0) Mean Corpuscular Volume 74 fL (79-100) Mean Corpuscular Hemoglobin 24 pg (25-35) Mean Corpuscular Hemoglobin Concent 33 g/dL (31-37) Red Cell Distribution Width 14.8 % (11.5-14.5) Platelet Count 294 x10^3/uL (140-400) Neutrophils (%) (Auto) 71 % (31-73) Lymphocytes (%) (Auto) 13 % (24-48) Monocytes (%) (Auto) 15 % (0-9) Eosinophils (%) (Auto) 0 % (0-3) Basophils (%) (Auto) 1 % (0-3) Neutrophils # (Auto) 6.3 x10^3/uL (1.8-7.7) Lymphocytes # (Auto) 1.2 x10^3/uL (1.0-4.8) Monocytes # (Auto) 1.3 x10^3/uL (0.0-1.1) Eosinophils # (Auto) 0.0 x10^3/uL (0.0-0.7) Basophils # (Auto) 0.1 x10^3/uL (0.0-0.2) Sodium Level 138 mmol/L (136-145) Potassium Level 3.9 mmol/L (3.5-5.1) Chloride Level 99 mmol/L (98-107) Carbon Dioxide Level 28 mmol/L (21-32) Anion Gap 11 (6-14) Blood Urea Nitrogen 36 mg/dL (8-26) Creatinine 1.4 mg/dL (0.7-1.3) Estimated GFR (Cockcroft-Gault) 58.3 Glucose Level 146 mg/dL (70-99) Calcium Level 9.2 mg/dL (8.5-10.1) Magnesium Level 2.6 mg/dL (1.8-2.4) Troponin I Quantitative 0.075 ng/mL (0.000-0.055) 0.083 ng/mL (0.000-0.055) BL-Gxq-Y-Type Natriuretic Peptide 5459 pg/mL (0-449) Thyroid Stimulating Hormone (TSH) 0.694 uIU/mL (0.358-3.74) Urine Collection Type U cath Urine Color Jahaira Urine Clarity Turbid Urine pH 8.0 (<5.0-8.0) Urine Specific [place] 1.015 (1.000-1.030) Urine Protein >=300 mg/dL (NEG-TRACE) Urine Glucose (UA) Negative mg/dL (NEG) Urine Ketones (Stick) 15 mg/dL (NEG) Urine Blood Moderate (NEG) Urine Nitrite Positive (NEG) Urine Bilirubin Negative (NEG) Urine Urobilinogen Dipstick 1.0 mg/dL (0.2 mg/dL) Urine Leukocyte Esterase Large (NEG) Urine RBC Field obscured /HPF (0-2) Urine WBC Tntc /HPF (0-4) Urine Squamous Epithelial Cells None /LPF Urine Bacteria Few /HPF (0-FEW) Laboratory Tests Test 10/20/20 10:13 10/20/20 10:20 10/20/20 14:00 White Blood Count 8.9 x10^3/uL (4.0-11.0) Red Blood Count 5.83 x10^6/uL (4.30-5.70) Hemoglobin 14.0 g/dL (13.0-17.5) Hematocrit 42.8 % (39.0-53.0) Mean Corpuscular Volume 74 fL (79-100) Mean Corpuscular Hemoglobin 24 pg (25-35) Mean Corpuscular Hemoglobin Concent 33 g/dL (31-37) Red Cell Distribution Width 14.8 % (11.5-14.5) Platelet Count 294 x10^3/uL (140-400) Neutrophils (%) (Auto) 71 % (31-73) Lymphocytes (%) (Auto) 13 % (24-48) Monocytes (%) (Auto) 15 % (0-9) Eosinophils (%) (Auto) 0 % (0-3) Basophils (%) (Auto) 1 % (0-3) Neutrophils # (Auto) 6.3 x10^3/uL (1.8-7.7) Lymphocytes # (Auto) 1.2 x10^3/uL (1.0-4.8) Monocytes # (Auto) 1.3 x10^3/uL (0.0-1.1) Eosinophils # (Auto) 0.0 x10^3/uL (0.0-0.7) Basophils # (Auto) 0.1 x10^3/uL (0.0-0.2) Sodium Level 138 mmol/L (136-145) Potassium Level 3.9 mmol/L (3.5-5.1) Chloride Level 99 mmol/L (98-107) Carbon Dioxide Level 28 mmol/L (21-32) Anion Gap 11 (6-14) Blood Urea Nitrogen 36 mg/dL (8-26) Creatinine 1.4 mg/dL (0.7-1.3) Estimated GFR (Cockcroft-Gault) 58.3 Glucose Level 146 mg/dL (70-99) Calcium Level 9.2 mg/dL (8.5-10.1) Magnesium Level 2.6 mg/dL (1.8-2.4) Troponin I Quantitative 0.075 ng/mL (0.000-0.055) 0.083 ng/mL (0.000-0.055) AT-Dvq-U-Type Natriuretic Peptide 5459 pg/mL (0-449) Thyroid Stimulating Hormone (TSH) 0.694 uIU/mL (0.358-3.74) Urine Collection Type U cath Urine Color Jahaira Urine Clarity Turbid Urine pH 8.0 (<5.0-8.0) Urine Specific [place] 1.015 (1.000-1.030) Urine Protein >=300 mg/dL (NEG-TRACE) Urine Glucose (UA) Negative mg/dL (NEG) Urine Ketones (Stick) 15 mg/dL (NEG) Urine Blood Moderate (NEG) Urine Nitrite Positive (NEG) Urine Bilirubin Negative (NEG) Urine Urobilinogen Dipstick 1.0 mg/dL (0.2 mg/dL) Urine Leukocyte Esterase Large (NEG) Urine RBC Field obscured /HPF (0-2) Urine WBC Tntc /HPF (0-4) Urine Squamous Epithelial Cells None /LPF Urine Bacteria Few /HPF (0-FEW) Images: Images Chest x-ray revealing for cardiomegaly. No pleural effusion or pneumothorax or infiltrate seen. Assessment/Plan Assessment/Plan Acute complicated cystitis, urine culture positive in 05/20/2020 for Aerococcus urinae New onset atrial flutter JERRY due to vasomotor nephropathy Elevated troponins likely due to type II demand ischemia Elevated troponin suggestive of volume overload History of BPH History of dyslipidemia Admit to hospitalist for further management Cardiology consult Continue telemetry monitoring We will start IV Levaquin and nitrofurantoin Pending urine cultures ID consult Continue IV fluids Trend troponins Heparin for DVT prophylaxis Cardiac diet Full code Discussed with RN and SW Disposition inpatient management as above Surrogate decision maker is Emelia Bolden In addition to my E/M visit, advance care planning done with A total time of 20 minutes was spent from 12:00 to 1220 face to face in discussion with the patient and family regarding their goals of care, CODE STATUS. Justifications for Admission Other Justification UTI PAN LOMBARDO MD Oct 20, 2020 15:34
[2020-10-20 15:35] VITALS: BP 135/94
[2020-10-20 16:57] LABS: CHOLESTEROL/HDL RATIO 4.6
--- NOTE | 2020-10-20 18:46 | EKG ---
[facility] [address] [place] [address] Test Date: 2020-10-20 Test Time: 11:31:36 Pat Name: ALISON DOMÍNGUEZ Department: Room: 588 1 Gender: M Neuroscientist: : 1935 Requested By: BECKY SALAZAR Order Number: [id number] Reading MD: James Vivar MD Measurements Intervals [place] Rate: 97 P: [place]: QRS: 28 QRSD: 120 T: -56 QT: 402 QTc: 515 Interpretive Statements ATRIAL FLUTTER RBBB Electronically Signed On 10-22-2020 14:33:23 CDT by James Vivar MD
--- NOTE | 2020-10-20 18:46 | EKG ---
[facility] [address] [place] [address] Test Date: 2020-10-20 Test Time: 10:06:19 Pat Name: ALISON DOMÍNGUEZ Department: Room: 588 1 Gender: M [place]: : 1935 Requested By: BECKY SALAZAR Order Number: [id number] Reading MD: Measurements Intervals [place] Rate: 161 P: [place]: QRS: 39 QRSD: 124 T: -52 QT: 302 QTc: 495 Interpretive Statements SUPRAVENTRICULAR TACHYCARDIA COMPLEX(ES) WITH ABERRANT INTRAVENTRICULAR CONDUCTION RVH WITH REPOLARIZATION ABNORMALITY QRS(T) CONTOUR ABNORMALITY CONSIDER ANTEROSEPTAL MYOCARDIAL DAMAGE ABNORMAL ECG RI6.01 No previous ECG available for comparison
[2020-10-20 19:00] VITALS: BP 90/50
[2020-10-20] MEDS ORDERED: DIGOXIN IV 500 MCG/2 ML AMPUL. IV ONE (19:00)
[2020-10-20] MEDS ORDERED: METOPROLOL IV PUSH 5 MG/5 ML VIAL. IVP PRN (19:45)
[2020-10-20] MEDS: TAMSULOSIN 0.4 MG CAP.ER.24H. PO SCH (20:14)
[2020-10-20] MEDS: NITROFURANTOIN MONOHYD/M-CRYST 100 MG CAPSULE. PO SCH (20:14)
[2020-10-20] MEDS: HEPARIN for SUB-Q USE 5,000 UNIT/ML VIAL. SQ SCH (20:17)
[2020-10-20 23:00] VITALS: BP 144/85
[2020-10-21 03:00] VITALS: BP 136/83
[2020-10-21 08:00] VITALS: BP 156/70
[2020-10-21] MEDS: ASPIRIN ENTERIC COATED 81 MG TABLET.DR. PO SCH (08:30)
[2020-10-21] MEDS: NITROFURANTOIN MONOHYD/M-CRYST 100 MG CAPSULE. PO SCH (08:30)
[2020-10-21] MEDS: LISINOPRIL 20 MG TABLET PO SCH (08:31)
[2020-10-21] MEDS: HEPARIN for SUB-Q USE 5,000 UNIT/ML VIAL. SQ SCH (08:36)
[2020-10-21] MEDS ORDERED: LISINOPRIL 20 MG TABLET PO SCH (09:00)
[2020-10-21] MEDS ORDERED: METOPROLOL SUCC 24HR ER 25 MG TAB.ER.24H. PO SCH ×3 (09:00→21:00)
--- NOTE | 2020-10-21 10:55 | PDOC2 ---
CONSULT Date of Consult Date of Consult DATE: 10/21/20 TIME: 10:46 Reason for Consult Reason for Consult: Aerococcus UTI antibiotic management Referring Physician Referring Physician: Dr. Evangelista History of Present Illness Reason for Visit: 85-year-old male with past medical history of depression, anxiety, dyslipidemia and BPH who presents to the ED with complaints of difficulty urinating. He also had burning upon urination with some abdominal discomfort he denies any fever, chills, nausea, vomiting, diarrhea, abdominal pain. He was tachycardic. He was started on diltiazem drip. Troponin was elevated. WBC was normal. UA showed pyuria. Urine culture is positive for gram-negative rods. Creatinine is 1.4. BNP elevated. Patient is currently on Levaquin and nitrofurantoin. ID consultation has been requested for antibiotic management Patient feels a little better. Denies any fevers, chills, night sweats, nausea, vomiting, diarrhea. Abdominal pain is improving. He has currently Rivas in place. Past Medical History Cardiovascular: HTN, Hyperlipidemia Psych: Anxiety Renal/: Benign prostatic enlarg. Past Surgical History Past Surgical History: No pertinent history Family History Family History: Hypertension Social History Quit ALCOHOL: none Drugs: None Lives: Alone Current Problem List Problem List Problems Medical Problems: (1) Atrial flutter Status: Acute (2) Atrial flutter with rapid ventricular response Status: Acute (3) UTI (urinary tract infection) Status: Acute Current Medications Current Medications Current Medications Ringer's Solution 1,000 ml @ 1,000 mls/hr Q1H IV Last administered on 10/20/20at 10:35; Start 10/20/20 at 10:15; Stop 10/20/20 at 11:14; Status DC Diltiazem HCl (Cardizem Iv Push) 10 mg 1X ONCE IVP Last administered on 10/20/20at 10:37; Start 10/20/20 at 10:30; Stop 10/20/20 at 10:31; Status DC Diltiazem HCl (Cardizem Iv Push) 10 mg 1X ONCE IVP ; Start 10/20/20 at 11:00; Stop 10/20/20 at 10:50; Status DC Diltiazem HCl (Cardizem Iv Push) 15 mg 1X ONCE IVP Last administered on 10/20/20at 11:20; Start 10/20/20 at 11:00; Stop 10/20/20 at 11:01; Status DC Levofloxacin/ Dextrose (Levaquin Per Pharmacy) 1 each PRN DAILY PRN MC SEE COMMENTS; Start 10/20/20 at 11:15 Levofloxacin/ Dextrose 50 ml @ 50 mls/hr Q24H IV Last administered on 10/20/20at 12:07; Start 10/20/20 at 12:00 Diltiazem HCl 125 mg/Sodium Chloride 125 ml @ 5 mls/hr CONT PRN IV SEE I/O RECORD; Start 10/20/20 at 12:00 Metoprolol Tartrate (Lopressor Vial) 5 mg 1X ONCE IVP Last administered on 10/20/20at 12:07; Start 10/20/20 at 12:00; Stop 10/20/20 at 12:01; Status DC Nitrofurantoin Macrocrystals (Macrobid) 100 mg BID PO Last administered on 10/21/20at 08:30; Start 10/20/20 at 21:00 Sennosides (Senna) 17.2 mg PRN BID PRN PO CONSTIPATION; Start 10/20/20 at 15:30 Docusate Sodium (Colace) 100 mg PRN DAILY PRN PO HARD STOOLS; Start 10/20/20 at 15:30 Ondansetron HCl (Zofran) 4 mg PRN Q6HRS PRN IVP NAUSEA/VOMITING; Start 10/20/20 at 15:30 Dextrose (Dextrose 50%-Water Syringe) 12.5 gm PRN Q15MIN PRN IV SEE COMMENTS; Start 10/20/20 at 15:30 Acetaminophen (Tylenol) 650 mg PRN Q4HRS PRN PO TEMP OVER 100.4F OR MILD PAIN; Start 10/20/20 at 15:30 Prochlorperazine Edisylate (Compazine) 10 mg PRN Q6HRS PRN IV NAUSEA/VOMITING - 2ND CHOICE; Start 10/20/20 at 15:30 Sodium Chloride 1,000 ml @ 100 mls/hr 1X ONCE IV Last administered on 10/20/20at 17:03; Start 10/20/20 at 15:30; Stop 10/21/20 at 01:29; Status DC Heparin Sodium (Porcine) (Heparin Sodium) 5,000 unit Q12HR SQ Last administered on 10/21/20at 08:36; Start 10/20/20 at 21:00; Stop 10/21/20 at 09:47; Status DC Aspirin (Ecotrin) 81 mg [id number] PO Last administered on 10/21/20at 08:30; Start 10/21/20 at 08:00 Lisinopril (Prinivil) 20 mg DAILY PO ; Start 10/21/20 at 09:00; Stop 10/20/20 at 16:33; Status DC Metoprolol Succinate (Toprol Xl) 50 mg DAILY PO ; Start 10/21/20 at 09:00; Stop 10/20/20 at 16:33; Status DC Tamsulosin HCl (Flomax) 0.4 mg QHS PO Last administered on 10/20/20at 20:14; Start 10/20/20 at 21:00 Lisinopril (Prinivil) 10 mg DAILY PO Last administered on 10/21/20at 08:31; Start 10/21/20 at 09:00 Metoprolol Succinate (Toprol Xl) 75 mg DAILY PO ; Start 10/21/20 at 21:00 Metoprolol Tartrate (Lopressor Vial) 5 mg 1X ONCE IVP Last administered on 10/20/20at 17:05; Start 10/20/20 at 16:30; Stop 10/20/20 at 16:36; Status DC Enoxaparin Sodium (Lovenox 80mg Syringe) 80 mg 1X ONCE SQ Last administered on 10/20/20at 17:05; Start 10/20/20 at 16:30; Stop 10/20/20 at 16:36; Status DC Digoxin (Lanoxin) 500 mcg 1X ONCE IV Last administered on 10/20/20at 19:14; Start 10/20/20 at 19:00; Stop 10/20/20 at 19:01; Status DC Metoprolol Tartrate (Lopressor Vial) 5 mg PRN Q4HRS PRN IVP TACHYCARDIA Last administered on 10/21/20at 05:49; Start 10/20/20 at 19:45 Apixaban (Eliquis) 2.5 mg BID PO ; Start 10/21/20 at 10:30 Active Scripts Active Flomax (Tamsulosin Hcl) 0.4 Mg Cap.er.24h 0.4 Mg PO QHS 90 Days Reported Melatonin 1 Mg Tablet 1 Tab PO QHS 30 Days Terazosin Hcl 5 Mg Capsule 5 Mg PO DAILY Metoprolol Succinate ( Xl ) (Metoprolol Succinate) 25 Mg Tab.er.24h 50 Mg PO DAILY Hydrochlorothiazide Tablet (Hydrochlorothiazide) 12.5 Mg Tablet 12.5 Mg PO QAM Lisinopril 20 Mg Tablet 20 Mg PO DAILY Lovastatin 20 Mg Tablet 20 Mg PO QHS Allergies Allergies: Coded Allergies: Penicillins (Verified Allergy, Intermediate, RASH, 10/26/14) aspirin (Verified Adverse Reaction, Mild, Nausea, 07/14/20) Physical Exam Physical Exam GENERAL: Alert, oriented x 3, lying in bed comfortably, in no acute distress. HEENT: Normocephalic, atraumatic. Anicteric. NECK: Supple. No JVD. LUNGS: Clear bilaterally. No wheezing. HEART: S1, S2. No gallops or murmurs. ABDOMEN: Soft, nontender, nondistended. No rebound or guarding. : rivas in place EXTREMITIES: No edema or cyanosis MUSCULOSKELETAL: No joint swelling. No decrease in range of motion. CENTRAL NERVOUS SYSTEM: Alert, oriented x 3, grossly nonfocal. PSYCHIATRIC: Cooperative, calm. LINES: looks clean. Vitals VITALS Vital Signs Date Time Temp Pulse Resp B/P (MAP) Pulse Ox O2 Delivery O2 Flow Rate FiO2 10/21/20 08:31 64 156/70 10/21/20 08:00 97.9 20 96 Room Air 97.9 Labs Labs Laboratory Tests Test 10/20/20 10:13 10/20/20 10:20 10/20/20 14:00 10/20/20 17:32 White Blood Count 8.9 x10^3/uL (4.0-11.0) Red Blood Count 5.83 x10^6/uL (4.30-5.70) Hemoglobin 14.0 g/dL (13.0-17.5) Hematocrit 42.8 % (39.0-53.0) Mean Corpuscular Volume 74 fL (79-100) Mean Corpuscular Hemoglobin 24 pg (25-35) Mean Corpuscular Hemoglobin Concent 33 g/dL (31-37) Red Cell Distribution Width 14.8 % (11.5-14.5) Platelet Count 294 x10^3/uL (140-400) Neutrophils (%) (Auto) 71 % (31-73) Lymphocytes (%) (Auto) 13 % (24-48) Monocytes (%) (Auto) 15 % (0-9) Eosinophils (%) (Auto) 0 % (0-3) Basophils (%) (Auto) 1 % (0-3) Neutrophils # (Auto) 6.3 x10^3/uL (1.8-7.7) Lymphocytes # (Auto) 1.2 x10^3/uL (1.0-4.8) Monocytes # (Auto) 1.3 x10^3/uL (0.0-1.1) Eosinophils # (Auto) 0.0 x10^3/uL (0.0-0.7) Basophils # (Auto) 0.1 x10^3/uL (0.0-0.2) Sodium Level 138 mmol/L (136-145) Potassium Level 3.9 mmol/L (3.5-5.1) Chloride Level 99 mmol/L (98-107) Carbon Dioxide Level 28 mmol/L (21-32) Anion Gap 11 (6-14) Blood Urea Nitrogen 36 mg/dL (8-26) Creatinine 1.4 mg/dL (0.7-1.3) Estimated GFR (Cockcroft-Gault) 58.3 Glucose Level 146 mg/dL (70-99) Calcium Level 9.2 mg/dL (8.5-10.1) Magnesium Level 2.6 mg/dL (1.8-2.4) Troponin I Quantitative 0.075 ng/mL (0.000-0.055) 0.083 ng/mL (0.000-0.055) 0.070 ng/mL (0.000-0.055) VN-Oan-L-Type Natriuretic Peptide 5459 pg/mL (0-449) Triglycerides Level 106 mg/dL (0-150) Cholesterol Level 172 mg/dL (0-200) LDL Cholesterol, Calculated 114 mg/dL (0-100) VLDL Cholesterol, Calculated 21 mg/dL (0-40) Non-HDL Cholesterol Calculated 135 mg/dL (0-129) HDL Cholesterol 37 mg/dL (40-60) Cholesterol/HDL Ratio 4.6 Thyroid Stimulating Hormone (TSH) 0.694 uIU/mL (0.358-3.74) Urine Collection Type U cath Urine Color Jahaira Urine Clarity Turbid Urine pH 8.0 (<5.0-8.0) Urine Specific [place] 1.015 (1.000-1.030) Urine Protein >=300 mg/dL (NEG-TRACE) Urine Glucose (UA) Negative mg/dL (NEG) Urine Ketones (Stick) 15 mg/dL (NEG) Urine Blood Moderate (NEG) Urine Nitrite Positive (NEG) Urine Bilirubin Negative (NEG) Urine Urobilinogen Dipstick 1.0 mg/dL (0.2 mg/dL) Urine Leukocyte Esterase Large (NEG) Urine RBC Field obscured /HPF (0-2) Urine WBC Tntc /HPF (0-4) Urine Squamous Epithelial Cells None /LPF Urine Bacteria Few /HPF (0-FEW) Laboratory Tests Test 10/20/20 14:00 10/20/20 17:32 Troponin I Quantitative 0.083 ng/mL (0.000-0.055) 0.070 ng/mL (0.000-0.055) Images Images Chest x-ray IMPRESSION: Cardiomegaly. Assessment/Plan Assessment/Plan Complicated UTI gram-negative rods on urine culture BPH Aflutter with RVR Hypertension/hyperlipidemia JERRY Penicillin allergy unknown reaction does not recall taking amoxicillin or Augmentin Recommendations Discussed with pharmacy Trial with low-dose cefepime if tolerates, continue 2 g IV every 12hrs DC Levaquin and nitrofurantoin Follow-up urine cultures GNR Obtain renal ultrasound Monitor labs and cultures Continue supportive care SUKH WHIPPLE MD Oct 21, 2020 10:55
--- NOTE | 2020-10-21 10:56 | PDOC ---
[employer] PROGRESS NOTE Date of Service DOS: DATE: 10/21/20 TIME: 10:52 Chief Complaint Chief Complaint Dysuria History of Present Illness History of Present Illness 85-year-old male with past medical history of depression, anxiety, dyslipidemia and BPH who presents to the ED with complaints of difficulty urinating. This has been occurring for the last several weeks. Patient complains of burning upon urination but denies any suprapubic tenderness or abdominal pain. Denies any hematuria, bloody stools, chest pain, shortness of breath or headaches or syncope. Upon arrival to the ED patient was found to have elevated heart rate to the 160s. Telemonitoring and EKG did showed atrial flutter. Cardiology was consulted. Patient was given several doses of diltiazem boluses and there was some improvement down to the 120s. Eventually patient was kept on diltiazem drip. 10/21/20 Evaluated at bedside. Patient was evaluated. Suh's catheter is in place colored urine. Continue antibiotics for UTI treatment. Cardiology following for atrial flutter. Starting low-dose Eliquis today for stroke prevention. Otherwise continue current plan. Plan of care discussed with bedside RN. Vitals/I&O Vitals/I&O: Vital Signs Date Time Temp Pulse Resp B/P (MAP) Pulse Ox O2 Delivery O2 Flow Rate FiO2 10/21/20 08:31 64 156/70 10/21/20 08:00 97.9 20 96 Room Air 97.9 I & O 10/20/20 10/20/20 10/21/20 15:00 23:00 07:00 Intake Total 1050 ml 120 ml 0 ml Output Total 500 ml Balance 1050 ml 120 ml -500 ml Physical Exam General: Alert, Oriented X3, Cooperative, No acute distress Heart: Other (aflutter) Lungs: Clear Abdomen: Soft, No tenderness Extremities: No edema, Normal pulses Skin: No significant lesion Labs Labs: Laboratory Tests Test 10/20/20 14:00 10/20/20 17:32 Troponin I Quantitative 0.083 ng/mL (0.000-0.055) 0.070 ng/mL (0.000-0.055) Assessment and Plan Assessmemt and Plan Problems Medical Problems: (1) Atrial flutter Status: Acute (2) Atrial flutter with rapid ventricular response Status: Acute (3) UTI (urinary tract infection) Status: Acute Assessment/Plan Acute complicated cystitis, urine culture positive in 05/20/2020 for Aerococcus urinae New onset atrial flutter JERRY due to vasomotor nephropathy Elevated troponins likely due to type II demand ischemia Elevated troponin suggestive of volume overload History of BPH History of dyslipidemia Admit to hospitalist for further management Cardiology consult Continue telemetry monitoring Received Levaquin and Macrobid in the emergency room; ID consulted started on cefepime Pending urine cultures, prelim shows greater than 100,000 colonies ID consult Continue IV fluids Trend troponins Heparin for DVT prophylaxis Cardiac diet Full code Discussed with RN and SW Disposition inpatient management as above Surrogate decision maker is Emelia Bolden Comment Review of Relevant I have reviewed the following items veto (where applicable) has been applied. Medications: Current Medications Medications (Trade) Dose Ordered Sig/Beau Route PRN Reason Start Time Stop Time Status Last Admin Dose Admin Diltiazem HCl (Cardizem Iv Push) 15 mg 1X ONCE IVP 10/20/20 11:00 10/20/20 11:01 DC 10/20/20 11:20 Levofloxacin/ Dextrose 50 ml @ 50 mls/hr Q24H IV 10/20/20 12:00 10/21/20 10:45 DC 10/20/20 12:07 Metoprolol Tartrate (Lopressor Vial) 5 mg 1X ONCE IVP 10/20/20 12:00 10/20/20 12:01 DC 10/20/20 12:07 Nitrofurantoin Macrocrystals (Macrobid) 100 mg BID PO 10/20/20 21:00 10/21/20 10:45 DC 10/21/20 08:30 Sodium Chloride 1,000 ml @ 100 mls/hr 1X ONCE IV 10/20/20 15:30 10/21/20 01:29 DC 10/20/20 17:03 Heparin Sodium (Porcine) (Heparin Sodium) 5,000 unit Q12HR SQ 10/20/20 21:00 10/21/20 09:47 DC 10/21/20 08:36 Aspirin (Ecotrin) 81 mg DAILYWBKFT PO 10/21/20 08:00 10/21/20 08:30 Tamsulosin HCl (Flomax) 0.4 mg QHS PO 10/20/20 21:00 10/20/20 20:14 Lisinopril (Prinivil) 10 mg DAILY PO 10/21/20 09:00 10/21/20 08:31 Metoprolol Tartrate (Lopressor Vial) 5 mg 1X ONCE IVP 10/20/20 16:30 10/20/20 16:36 DC 10/20/20 17:05 Enoxaparin Sodium (Lovenox 80mg Syringe) 80 mg 1X ONCE SQ 10/20/20 16:30 10/20/20 16:36 DC 10/20/20 17:05 Digoxin (Lanoxin) 500 mcg 1X ONCE IV 10/20/20 19:00 10/20/20 19:01 DC 10/20/20 19:14 Metoprolol Tartrate (Lopressor Vial) 5 mg PRN Q4HRS PRN IVP TACHYCARDIA 10/20/20 19:45 10/21/20 05:49 Justifications for Admission Other Justification UTI HELGA ESCALANTE MD Oct 21, 2020 10:56
[2020-10-21 11:10] VITALS: BP 139/80
[2020-10-21 11:18] LABS: BASO # 0.1 x10^3/uL (0.0-0.2); BASO % 1 % (0-3); EOS # 0.1 x10^3/uL (0.0-0.7); EOS % 1 % (0-3); HEMOGLOBIN 12.9 g/dL (13.0-17.5); LYMPH # 1.2 x10^3/uL (1.0-4.8); LYMPH % 18 % (24-48); MEAN CORPUSCULAR HEMOGLOBIN 24 pg (25-35); MEAN CORPUSCULAR HGB CONC 32 g/dL (31-37); MEAN CORPUSCULAR VOLUME 75 fL (79-100); MONO % 14 % (0-9); NEUT # 4.5 x10^3/uL (1.8-7.7); NEUT % 66 % (31-73); PLATELET COUNT 299 x10^3/uL (140-400); RED BLOOD COUNT 5.49 x10^6/uL (4.30-5.70); RED CELL DISTRIBUTION WIDTH 14.9 % (11.5-14.5); WHITE BLOOD COUNT 6.8 x10^3/uL (4.0-11.0)
[2020-10-21 11:31] LABS: CALCIUM 8.7 mg/dL (8.5-10.1); CREATININE 1.1 mg/dL (0.7-1.3); MAGNESIUM 2.3 mg/dL (1.8-2.4); PHOSPHORUS 2.9 mg/dL (2.6-4.7); POTASSIUM 4.6 mmol/L (3.5-5.1)
--- NOTE | 2020-10-21 11:48 | PDOC ---
WOOD ELDER P[employer] FITTER APPRENTICE 10/21/20 1148: CARDIO Progress Notes Date and Time Date of Service 10/21/20 Time of Evaluation 1115 Subjective Subjective: No Chest Pain, No shortness of breath, No Palpitations Vitals Vitals Vital Signs Date Time Temp Pulse Resp B/P (MAP) Pulse Ox O2 Delivery O2 Flow Rate FiO2 10/21/20 11:10 98.1 65 18 139/80 (99) 97 Room Air 98.1 Weight Weight [ ] Input and Output Intake and Output Intake and Output 10/21/20 07:00 Intake Total 1170 ml Output Total 500 ml Balance 670 ml Intake Oral 120 ml IV Total 1050 ml Output Urine Total 500 ml Laboratory Labs Laboratory Tests Test 10/20/20 14:00 10/20/20 17:32 10/21/20 11:04 Troponin I Quantitative 0.083 ng/mL (0.000-0.055) 0.070 ng/mL (0.000-0.055) White Blood Count 6.8 x10^3/uL (4.0-11.0) Red Blood Count 5.49 x10^6/uL (4.30-5.70) Hemoglobin 12.9 g/dL (13.0-17.5) Hematocrit 41.0 % (39.0-53.0) Mean Corpuscular Volume 75 fL (79-100) Mean Corpuscular Hemoglobin 24 pg (25-35) Mean Corpuscular Hemoglobin Concent 32 g/dL (31-37) Red Cell Distribution Width 14.9 % (11.5-14.5) Platelet Count 299 x10^3/uL (140-400) Neutrophils (%) (Auto) 66 % (31-73) Lymphocytes (%) (Auto) 18 % (24-48) Monocytes (%) (Auto) 14 % (0-9) Eosinophils (%) (Auto) 1 % (0-3) Basophils (%) (Auto) 1 % (0-3) Neutrophils # (Auto) 4.5 x10^3/uL (1.8-7.7) Lymphocytes # (Auto) 1.2 x10^3/uL (1.0-4.8) Monocytes # (Auto) 1.0 x10^3/uL (0.0-1.1) Eosinophils # (Auto) 0.1 x10^3/uL (0.0-0.7) Basophils # (Auto) 0.1 x10^3/uL (0.0-0.2) Sodium Level 138 mmol/L (136-145) Potassium Level 4.6 mmol/L (3.5-5.1) Chloride Level 104 mmol/L (98-107) Carbon Dioxide Level 30 mmol/L (21-32) Anion Gap 4 (6-14) Blood Urea Nitrogen 24 mg/dL (8-26) Creatinine 1.1 mg/dL (0.7-1.3) Estimated GFR (Cockcroft-Gault) 77.0 Glucose Level 107 mg/dL (70-99) Calcium Level 8.7 mg/dL (8.5-10.1) Phosphorus Level 2.9 mg/dL (2.6-4.7) Magnesium Level 2.3 mg/dL (1.8-2.4) Microbiology Micro Microbiology 10/20/20 Urine Culture - Preliminary, Resulted Physical Exam HEENT: Neck Supple W Full Motion Chest: Symmetric LUNGS: Clear to Auscultation Heart: irregularly irregular (AFIB/flutter, rate 115 ) Abdomen: Soft N/T Extremities: No Edema Neurology: alert, oriented, follow commands Assessment Assessment 1. BPH, urinary retention, UTI; as per IM 2. Aflutter with RVR; new finding. Rate elevated, but oral metoprolol has not been administered. Echo showed preserved LV systolic function 3. Mild troponin elevation; initial 0.07. Most probably type II, demand ischemia. CP free. Stress test 04/18 without evidence of ischemia as noted above. 4. Hypertension; controlled 5. Hyperlipidemia; LDL 114 6. JERRY; resolved 7. Chronic RBBB Recommendations Dig IV x1 now Resume metoprolol for rate control; d/w RN Low dose Eliquis for stroke prophylaxis Outpatient cardioversion is patient remains in AFIB Supportive care Justicifation of Admission Dx: Justifications for Admission: Justification of Admission Dx: Yes Comments: AFIB with RVR UTI OJ WALSH MD 10/21/20 2324: WOOD ELDER APRN Oct 21, 2020 11:48 OJ WALSH MD Oct 21, 2020 23:24
[2020-10-21] MEDS: APIXABAN 2.5 MG TABLET. PO SCH ×2 (12:03→21:22)
[2020-10-21] MEDS: CEFEPIME HCL IV Push 1 GM VIAL. IVP SCH ×2 (12:04→13:48)
--- NOTE | 2020-10-21 13:15 | RAD ---
EXAM: Renal sonogram. HISTORY: Obstructive uropathy. Urinary tract infection. TECHNIQUE: Sonographic imaging the kidneys and bladder was performed. COMPARISON: None. FINDINGS: The kidneys are normal in size. There is a 4.2 cm simple cyst within the upper pole of the right kidney. There is a complicated cyst with internal septation within the mid zone of the left kid vivienne measuring 2.5 cm. The prostate is enlarged, measuring 115 cc in volume. There is a rounded massli ke lesion within the inferior bladder which may be due to deformation from the aforementioned enlarge d prostate. There is a suspected Suh catheter balloon along the superior aspect of the bladder lume n. IMPRESSION: 1. 4.2 cm simple right renal cyst. Follow up is not routinely performed for simple cysts. 2. 2.5 cm complicated left renal cyst with internal septation. Short-term follow-up in 6 months with a sonogram or a renal protocol CT or MRI can be performed to confirm benignity. 3. Prostatomegaly. There is a masslike lesion within the bladder base which may be due to mass effect from the aforementioned prostate. The possibility of a bladder neoplasm is not excluded. Cystoscopy or a CT urogram may be useful for characterization. 4. Suspected Suh catheter balloon along the superior aspect of the bladder wall. Correlate with cat heter output. Electronically signed by: Christina Morgan MD (10/21/2020 1:13 PM) [id number]
--- NOTE | 2020-10-21 13:17 | NUR ---
SW following. Discussed with RN, pt from home alone, room air, cardiac diet, gets around fine per RN. Pt having an echo today. ID and Cardiology following. RN advised no SW needs at this time. SW will continue to follow.
--- NOTE | 2020-10-21 13:35 | CARD ---
MR#: [id number] Date of Study: 10/21/2020 Ordering Physician: WOOD ELDER, Referring Physician: WOOD ELDER, Tech: Selene Branch [facility] APPROVED REPORT EXAM: Two-dimensional and M-mode echocardiogram with Doppler and color Doppler. Other Information Quality : AverageHR: 140bpm Rhythm : Tachycardia INDICATION Arrhythmia RISK FACTORS Hypertension Hyperlipidemia 2D DIMENSIONS RVDd3.7 (2.9-3.5cm)Left Atrium(2D)3.2 (1.6-4.0cm) IVSd1.3 (0.7-1.1cm)Aortic Root(2D)3.5 (2.0-3.7cm) LVDd3.6 (3.9-5.9cm)LVOT Diameter2.0 (1.8-2.4cm) PWd1.2 (0.7-1.1cm)LVDs2.1 (2.5-4.0cm) FS (%) 42.3 %SV40.4 ml LVEF(%)74.3 (>50%) Aortic Valve AoV Peak Rachid.177.4cm/sAoV VTI34.2cm AO Peak GR.12.6mmHgAO Mean GR.7mmHg Mitral Valve MV E Plrdiogb43.0cm/sMV DECEL PEUX42bl MV A Cxqefpiv71.0cm/sE/A Ratio1.6 Pulmonary Valve PV Peak Amlobbgt485.6cm/s Tricuspid Valve TR P. Haktcwzj957cb/sTR Peak Gr.35mmHg LEFT VENTRICLE The left ventricle is normal size. There is mild concentric left ventricular hypertrophy. The left ve ntricular systolic function is normal and the ejection fraction is within normal range. Estimated eje ction 55%. There is normal LV segmental wall motion. Tissue Doppler imaging reveals moderate left marguerite tricular diastolic dysfunction. No left ventricle thrombus noted on this study. RIGHT VENTRICLE The right ventricle is normal size. There is normal right ventricular wall thickness. The right ventr icular systolic function is normal. ATRIA The left atrium is borderline dilated. The right atrium is mildly dilated. The interatrial septum is intact with no evidence for an atrial septal defect or patent foramen ovale as noted on 2-D or Dopple r imaging. AORTIC VALVE The aortic valve is calcified but opens well. Doppler and Color Flow revealed mild aortic regurgitati on. There is no significant aortic valvular stenosis. MITRAL VALVE The mitral valve is normal in structure and function. There is no evidence of mitral valve prolapse. There is no mitral valve stenosis. Doppler and Color Flow revealed no mitral valve regurgitation note d. TRICUSPID VALVE The tricuspid valve is normal in structure and function. Doppler and Color Flow revealed mild tricusp id regurgitation. Estimated PAP 40 mmHg. There is no tricuspid valve stenosis. PULMONIC VALVE Doppler and Color Flow revealed trace pulmonic valvular regurgitation. There is no pulmonic valvular stenosis. GREAT VESSELS The aortic root is normal in size. The ascending aorta is normal in size. The IVC is normal in size a nd collapses >50% with inspiration. PERICARDIAL EFFUSION There is no evidence of significant pericardial effusion. Critical Notification Critical Value: No <Conclusion> The left ventricular systolic function is normal and the ejection fraction is within normal range. E stimated ejection 55%. There is normal LV segmental wall motion. Doppler and Color Flow revealed mild aortic regurgitation. Signed by : James Vivar, Electronically Approved : 10/21/2020 13:35:07
[2020-10-21 15:00] VITALS: BP 118/58
[2020-10-21] MEDS ORDERED: DIGOXIN IV 500 MCG/2 ML AMPUL. IV ONE (15:00)
[2020-10-21 19:00] VITALS: BP 143/71
[2020-10-21] MEDS: TAMSULOSIN 0.4 MG CAP.ER.24H. PO SCH (21:22)
[2020-10-21] MEDS: ATORVASTATIN CALCIUM 20 MG TABLET PO SCH (21:22)
[2020-10-21] MEDS: CEFEPIME HCL IV Push 2 GM VIAL. IVP SCH (21:22)
[2020-10-21] MEDS: ACETAMINOPHEN 325 MG TABLET. PO PRN (21:27)
[2020-10-21 23:00] VITALS: BP 104/58
[2020-10-22 03:00] VITALS: BP 139/78
[2020-10-22 07:28] VITALS: BP 164/71
[2020-10-22 07:49] LABS: BASO % 1 % (0-3); EOS # 0.1 x10^3/uL (0.0-0.7); EOS % 1 % (0-3); HEMATOCRIT 41.3 % (39.0-53.0); HEMOGLOBIN 13.2 g/dL (13.0-17.5); LYMPH # 1.2 x10^3/uL (1.0-4.8); LYMPH % 21 % (24-48); MEAN CORPUSCULAR HEMOGLOBIN 24 pg (25-35); MEAN CORPUSCULAR HGB CONC 32 g/dL (31-37); MEAN CORPUSCULAR VOLUME 75 fL (79-100); MONO # 0.9 x10^3/uL (0.0-1.1); MONO % 15 % (0-9); NEUT # 3.6 x10^3/uL (1.8-7.7); NEUT % 62 % (31-73); PLATELET COUNT 323 x10^3/uL (140-400); RED BLOOD COUNT 5.54 x10^6/uL (4.30-5.70); RED CELL DISTRIBUTION WIDTH 14.8 % (11.5-14.5); WHITE BLOOD COUNT 5.8 x10^3/uL (4.0-11.0)
[2020-10-22 08:08] LABS: CALCIUM 9.1 mg/dL (8.5-10.1); CREATININE 1.1 mg/dL (0.7-1.3); MAGNESIUM 2.3 mg/dL (1.8-2.4); POTASSIUM 4.7 mmol/L (3.5-5.1)
[2020-10-22] MEDS: ASPIRIN ENTERIC COATED 81 MG TABLET.DR. PO SCH (08:54)
[2020-10-22] MEDS: APIXABAN 2.5 MG TABLET. PO SCH ×2 (08:55→20:42)
[2020-10-22] MEDS: LISINOPRIL 20 MG TABLET PO SCH (08:55)
[2020-10-22] MEDS: METOPROLOL SUCC 24HR ER 25 MG TAB.ER.24H. PO SCH (08:55)
[2020-10-22] MEDS: CEFEPIME HCL IV Push 2 GM VIAL. IVP SCH (08:56)
--- NOTE | 2020-10-22 10:14 | PDOC ---
Infectious Disease Note Subjective: Subjective Pt says feels better no f/n/v/d Vital Signs: Vital Signs Vital Signs Date Time Temp Pulse Resp B/P (MAP) Pulse Ox O2 Delivery O2 Flow Rate FiO2 10/22/20 08:55 160 164/71 10/22/20 07:28 97.6 16 98 Room Air 97.6 Physical Exam: PHYSICAL EXAM GENERAL: Alert, oriented x 3, lying in bed comfortably, in no acute distress. HEENT: Normocephalic, atraumatic. Anicteric. NECK: Supple. No JVD. LUNGS: Clear bilaterally. No wheezing. HEART: S1, S2. Tachycardia, No gallops or murmurs. ABDOMEN: Soft, nontender, nondistended. No rebound or guarding. : rivas in place EXTREMITIES: No edema or cyanosis MUSCULOSKELETAL: No joint swelling. No decrease in range of motion. CENTRAL NERVOUS SYSTEM: Alert, oriented x 3, grossly nonfocal. PSYCHIATRIC: Cooperative, calm. LINES: looks clean. Medications: Inpatient Meds: Medications reviewed. Labs: Lab Laboratory Tests Test 10/21/20 11:04 10/22/20 07:25 White Blood Count 6.8 x10^3/uL (4.0-11.0) 5.8 x10^3/uL (4.0-11.0) Red Blood Count 5.49 x10^6/uL (4.30-5.70) 5.54 x10^6/uL (4.30-5.70) Hemoglobin 12.9 g/dL (13.0-17.5) 13.2 g/dL (13.0-17.5) Hematocrit 41.0 % (39.0-53.0) 41.3 % (39.0-53.0) Mean Corpuscular Volume 75 fL (79-100) 75 fL (79-100) Mean Corpuscular Hemoglobin 24 pg (25-35) 24 pg (25-35) Mean Corpuscular Hemoglobin Concent 32 g/dL (31-37) 32 g/dL (31-37) Red Cell Distribution Width 14.9 % (11.5-14.5) 14.8 % (11.5-14.5) Platelet Count 299 x10^3/uL (140-400) 323 x10^3/uL (140-400) Neutrophils (%) (Auto) 66 % (31-73) 62 % (31-73) Lymphocytes (%) (Auto) 18 % (24-48) 21 % (24-48) Monocytes (%) (Auto) 14 % (0-9) 15 % (0-9) Eosinophils (%) (Auto) 1 % (0-3) 1 % (0-3) Basophils (%) (Auto) 1 % (0-3) 1 % (0-3) Neutrophils # (Auto) 4.5 x10^3/uL (1.8-7.7) 3.6 x10^3/uL (1.8-7.7) Lymphocytes # (Auto) 1.2 x10^3/uL (1.0-4.8) 1.2 x10^3/uL (1.0-4.8) Monocytes # (Auto) 1.0 x10^3/uL (0.0-1.1) 0.9 x10^3/uL (0.0-1.1) Eosinophils # (Auto) 0.1 x10^3/uL (0.0-0.7) 0.1 x10^3/uL (0.0-0.7) Basophils # (Auto) 0.1 x10^3/uL (0.0-0.2) 0.0 x10^3/uL (0.0-0.2) Sodium Level 138 mmol/L (136-145) 139 mmol/L (136-145) Potassium Level 4.6 mmol/L (3.5-5.1) 4.7 mmol/L (3.5-5.1) Chloride Level 104 mmol/L (98-107) 104 mmol/L (98-107) Carbon Dioxide Level 30 mmol/L (21-32) 30 mmol/L (21-32) Anion Gap 4 (6-14) 5 (6-14) Blood Urea Nitrogen 24 mg/dL (8-26) 16 mg/dL (8-26) Creatinine 1.1 mg/dL (0.7-1.3) 1.1 mg/dL (0.7-1.3) Estimated GFR (Cockcroft-Gault) 77.0 77.0 Glucose Level 107 mg/dL (70-99) 92 mg/dL (70-99) Calcium Level 8.7 mg/dL (8.5-10.1) 9.1 mg/dL (8.5-10.1) Phosphorus Level 2.9 mg/dL (2.6-4.7) Magnesium Level 2.3 mg/dL (1.8-2.4) 2.3 mg/dL (1.8-2.4) Micro Renal Ultrasound IMPRESSION: 1. 4.2 cm simple right renal cyst. Follow up is not routinely performed for simple cysts. 2. 2.5 cm complicated left renal cyst with internal septation. Short-term follow-up in 6 months with a sonogram or a renal protocol CT or MRI can be performed to confirm benignity. 3. Prostatomegaly. There is a masslike lesion within the bladder base which may be due to mass effect from the aforementioned prostate. The possibility of a bladder neoplasm is not excluded. Cystoscopy or a CT urogram may be useful for characterization. 4. Suspected Rivas catheter balloon along the superior aspect of the bladder wall. Correlate with catheter output. Objective: Assessment: Complicated UTI Proteus BPH,abn renal on u/s Aflutter with RVR Hypertension/hyperlipidemia JERRY Penicillin allergy unknown reaction does not recall taking amoxicillin or Augmentin Recurrent UTIs Plan: Plan of Care change cefepime to ceftriaxone for now Monitor labs and cultures Continue supportive care Pt will need f/u with urology on discharge SUKH WHIPPLE MD Oct 22, 2020 10:14
[2020-10-22 11:00] VITALS: BP 123/53
--- NOTE | 2020-10-22 12:25 | PDOC ---
WOOD ELDER CORPORATE LEGAL SECRETARY 10/22/20 1225: CARDIO Progress Notes Date and Time Date of Service 10/22/20 Time of Evaluation 1150 Subjective Subjective: No Chest Pain, No shortness of breath, No Palpitations, Other (concerned about having prostate procedure ) Vitals Vitals Vital Signs Date Time Temp Pulse Resp B/P (MAP) Pulse Ox O2 Delivery O2 Flow Rate FiO2 10/22/20 11:00 98.1 117 18 123/53 (76) 97 Room Air 98.1 Weight Weight [ ] Input and Output Intake and Output Intake and Output 10/22/20 07:00 Intake Total 600 ml Output Total 700 ml Balance -100 ml Intake Oral 600 ml Output Urine Total 700 ml Laboratory Labs Laboratory Tests Test 10/22/20 07:25 White Blood Count 5.8 x10^3/uL (4.0-11.0) Red Blood Count 5.54 x10^6/uL (4.30-5.70) Hemoglobin 13.2 g/dL (13.0-17.5) Hematocrit 41.3 % (39.0-53.0) Mean Corpuscular Volume 75 fL (79-100) Mean Corpuscular Hemoglobin 24 pg (25-35) Mean Corpuscular Hemoglobin Concent 32 g/dL (31-37) Red Cell Distribution Width 14.8 % (11.5-14.5) Platelet Count 323 x10^3/uL (140-400) Neutrophils (%) (Auto) 62 % (31-73) Lymphocytes (%) (Auto) 21 % (24-48) Monocytes (%) (Auto) 15 % (0-9) Eosinophils (%) (Auto) 1 % (0-3) Basophils (%) (Auto) 1 % (0-3) Neutrophils # (Auto) 3.6 x10^3/uL (1.8-7.7) Lymphocytes # (Auto) 1.2 x10^3/uL (1.0-4.8) Monocytes # (Auto) 0.9 x10^3/uL (0.0-1.1) Eosinophils # (Auto) 0.1 x10^3/uL (0.0-0.7) Basophils # (Auto) 0.0 x10^3/uL (0.0-0.2) Sodium Level 139 mmol/L (136-145) Potassium Level 4.7 mmol/L (3.5-5.1) Chloride Level 104 mmol/L (98-107) Carbon Dioxide Level 30 mmol/L (21-32) Anion Gap 5 (6-14) Blood Urea Nitrogen 16 mg/dL (8-26) Creatinine 1.1 mg/dL (0.7-1.3) Estimated GFR (Cockcroft-Gault) 77.0 Glucose Level 92 mg/dL (70-99) Calcium Level 9.1 mg/dL (8.5-10.1) Magnesium Level 2.3 mg/dL (1.8-2.4) Microbiology Micro Microbiology 10/20/20 Urine Culture - Final, Complete 10/20/20 Antimicrobic Susceptibility - Final, Complete Physical Exam HEENT: Neck Supple W Full Motion Chest: Symmetric LUNGS: Clear to Auscultation Heart: irregularly irregular (AFIB/flutter, rate 95-120) Abdomen: Soft N/T Extremities: No Edema Neurology: alert, oriented, follow commands Assessment Assessment 1. BPH, urinary retention, UTI; as per IM 2. Aflutter with RVR; new finding. Rate remains elevated. Echo showed preserved LV systolic function 3. Mild troponin elevation; initial 0.07. Most probably type II, demand ischemia. CP free. Stress test 04/18 without evidence of ischemia as noted above. 4. Hypertension; controlled 5. Hyperlipidemia; LDL 114 6. JERRY; resolved 7. Chronic RBBB Recommendations Continue metoprolol Add Cardizem for better rate control Low dose Eliquis for stroke prophylaxis Consider outpatient cardioversion if patient remains in AFIB Supportive care Justicifation of Admission Dx: Justifications for Admission: Justification of Admission Dx: Yes OJ WALSH MD 10/22/20 1713: CARDIO Progress Notes Plan Plan The patient was seen and interviewed as well as examined at the bedside. The chart was reviewed. The case was discussed. Agree with the plan of care. WOOD ELDER APRN Oct 22, 2020 12:25 OJ WALSH MD Oct 22, 2020 17:13
--- NOTE | 2020-10-22 14:59 | PDOC ---
[employer] PROGRESS NOTE Date of Service DOS: DATE: 10/22/20 TIME: 14:54 Chief Complaint Chief Complaint Dysuria History of Present Illness History of Present Illness 85-year-old male with past medical history of depression, anxiety, dyslipidemia and BPH who presents to the ED with complaints of difficulty urinating. This has been occurring for the last several weeks. Patient complains of burning upon urination but denies any suprapubic tenderness or abdominal pain. Denies any hematuria, bloody stools, chest pain, shortness of breath or headaches or syncope. Upon arrival to the ED patient was found to have elevated heart rate to the 160s. Telemonitoring and EKG did showed atrial flutter. Cardiology was consulted. Patient was given several doses of diltiazem boluses and there was some improvement down to the 120s. Eventually patient was kept on diltiazem drip. 10/21/20 Evaluated at bedside. Patient was evaluated. Rivas's catheter is in place colored urine. Continue antibiotics for UTI treatment. Cardiology following for atrial flutter. Starting low-dose Eliquis today for stroke prevention. Otherwise continue current plan. Plan of care discussed with bedside RN. 10/22/20 Patient evaluated at bedside. Changing antibiotics cefepime to Rocephin. Will need urology follow-up after discharge. Otherwise doing well this morning. He does remain significantly tachycardic on telemetry this morning but appeared to have a normal rate overnight. Cardiology and infectious disease following. Plan of care discussed with bedside nurse. Hopeful for discharge before the weekend. Vitals/I&O Vitals/I&O: Vital Signs Date Time Temp Pulse Resp B/P (MAP) Pulse Ox O2 Delivery O2 Flow Rate FiO2 10/22/20 11:00 98.1 117 18 123/53 (76) 97 Room Air 98.1 I & O 10/21/20 10/21/20 10/22/20 15:00 23:00 07:00 Intake Total 480 ml 0 ml 120 ml Output Total 700 ml Balance 480 ml -700 ml 120 ml Physical Exam Physical Exam: GENERAL: Alert, oriented x 3, lying in bed comfortably, in no acute distress. HEENT: Normocephalic, atraumatic. Anicteric. NECK: Supple. No JVD. LUNGS: Clear bilaterally. No wheezing. HEART: S1, S2. Tachycardia, No gallops or murmurs. ABDOMEN: Soft, nontender, nondistended. No rebound or guarding. : rivas in place EXTREMITIES: No edema or cyanosis MUSCULOSKELETAL: No joint swelling. No decrease in range of motion. CENTRAL NERVOUS SYSTEM: Alert, oriented x 3, grossly nonfocal. PSYCHIATRIC: Cooperative, calm. LINES: looks clean. General: Alert, Oriented X3, Cooperative, No acute distress Heart: Other (irregular rhythm and rate) Lungs: Clear Abdomen: Soft, No tenderness Extremities: No edema, Normal pulses Skin: No significant lesion Labs Labs: Laboratory Tests Test 10/22/20 07:25 White Blood Count 5.8 x10^3/uL (4.0-11.0) Red Blood Count 5.54 x10^6/uL (4.30-5.70) Hemoglobin 13.2 g/dL (13.0-17.5) Hematocrit 41.3 % (39.0-53.0) Mean Corpuscular Volume 75 fL (79-100) Mean Corpuscular Hemoglobin 24 pg (25-35) Mean Corpuscular Hemoglobin Concent 32 g/dL (31-37) Red Cell Distribution Width 14.8 % (11.5-14.5) Platelet Count 323 x10^3/uL (140-400) Neutrophils (%) (Auto) 62 % (31-73) Lymphocytes (%) (Auto) 21 % (24-48) Monocytes (%) (Auto) 15 % (0-9) Eosinophils (%) (Auto) 1 % (0-3) Basophils (%) (Auto) 1 % (0-3) Neutrophils # (Auto) 3.6 x10^3/uL (1.8-7.7) Lymphocytes # (Auto) 1.2 x10^3/uL (1.0-4.8) Monocytes # (Auto) 0.9 x10^3/uL (0.0-1.1) Eosinophils # (Auto) 0.1 x10^3/uL (0.0-0.7) Basophils # (Auto) 0.0 x10^3/uL (0.0-0.2) Sodium Level 139 mmol/L (136-145) Potassium Level 4.7 mmol/L (3.5-5.1) Chloride Level 104 mmol/L (98-107) Carbon Dioxide Level 30 mmol/L (21-32) Anion Gap 5 (6-14) Blood Urea Nitrogen 16 mg/dL (8-26) Creatinine 1.1 mg/dL (0.7-1.3) Estimated GFR (Cockcroft-Gault) 77.0 Glucose Level 92 mg/dL (70-99) Calcium Level 9.1 mg/dL (8.5-10.1) Magnesium Level 2.3 mg/dL (1.8-2.4) Assessment and Plan Assessmemt and Plan Problems Medical Problems: (1) Atrial flutter Status: Acute (2) Atrial flutter with rapid ventricular response Status: Acute (3) UTI (urinary tract infection) Status: Acute Assessment/Plan Acute complicated cystitis, urine culture positive in 05/20/2020 for Aerococcus urinae; positive Proteus for this admission New onset atrial flutter JERRY due to vasomotor nephropathy Elevated troponins likely due to type II demand ischemia Elevated troponin suggestive of volume overload History of BPH History of dyslipidemia Admit to hospitalist for further management Cardiology consult Continue telemetry monitoring Received Levaquin and Macrobid in the emergency room; ID consulted started on cefepime changed to Rocephin October 22 Pending urine cultures, prelim shows greater than 100,000 colonies speciated to Proteus ID consult Continue IV fluids Trend troponins Heparin for DVT prophylaxis Cardiac diet Full code Discussed with RN and SW Disposition inpatient management as above Surrogate decision maker is Emelia Bolden Comment Review of Relevant I have reviewed the following items veto (where applicable) has been applied. Medications: Current Medications Medications (Trade) Dose Ordered Sig/Beau Route PRN Reason Start Time Stop Time Status Last Admin Dose Admin Cefepime HCl (Maxipime) 2 gm Q12HR IVP 10/21/20 21:00 10/22/20 08:56 Metoprolol Succinate (Toprol Xl) 100 mg DAILY PO 10/22/20 09:00 10/22/20 08:55 Digoxin (Lanoxin) 500 mcg 1X ONCE IV 10/21/20 15:00 10/21/20 15:01 DC 10/21/20 15:16 Atorvastatin Calcium (Lipitor) 20 mg QHS PO 10/21/20 21:00 10/21/20 21:22 Justifications for Admission Other Justification UTI HELGA ESCALANTE MD Oct 22, 2020 14:58
[2020-10-22 15:12] VITALS: BP 148/61
[2020-10-22] MEDS: cefTRIAXone IV Push 1 GM VIAL. IVP SCH (17:03)
[2020-10-22 19:00] VITALS: BP 114/62
[2020-10-22] MEDS: LACTOBACILLUS RHAMNOSUS GG 1 CAPSULE. PO SCH (20:41)
[2020-10-22] MEDS: TAMSULOSIN 0.4 MG CAP.ER.24H. PO SCH (20:42)
[2020-10-22] MEDS: ATORVASTATIN CALCIUM 20 MG TABLET PO SCH (20:42)
[2020-10-22 23:00] VITALS: BP 121/67
[2020-10-23 03:00] VITALS: BP 150/75
[2020-10-23 07:15] VITALS: BP 132/66
[2020-10-23 07:39] LABS: CALCIUM 9.1 mg/dL (8.5-10.1); GFR 85.9; MAGNESIUM 2.3 mg/dL (1.8-2.4)
[2020-10-23 07:53] LABS: BASO % 1 % (0-3); EOS # 0.1 x10^3/uL (0.0-0.7); EOS % 2 % (0-3); HEMATOCRIT 40.3 % (39.0-53.0); HEMOGLOBIN 12.8 g/dL (13.0-17.5); LYMPH # 1.4 x10^3/uL (1.0-4.8); LYMPH % 24 % (24-48); MEAN CORPUSCULAR HEMOGLOBIN 24 pg (25-35); MEAN CORPUSCULAR HGB CONC 32 g/dL (31-37); MEAN CORPUSCULAR VOLUME 75 fL (79-100); MONO # 0.8 x10^3/uL (0.0-1.1); MONO % 14 % (0-9); NEUT # 3.4 x10^3/uL (1.8-7.7); NEUT % 60 % (31-73); PLATELET COUNT 357 x10^3/uL (140-400); RED BLOOD COUNT 5.38 x10^6/uL (4.30-5.70); RED CELL DISTRIBUTION WIDTH 15.1 % (11.5-14.5); WHITE BLOOD COUNT 5.7 x10^3/uL (4.0-11.0)
[2020-10-23] MEDS: ASPIRIN ENTERIC COATED 81 MG TABLET.DR. PO SCH (08:20)
[2020-10-23] MEDS: APIXABAN 2.5 MG TABLET. PO SCH ×2 (08:20→20:37)
[2020-10-23] MEDS: LACTOBACILLUS RHAMNOSUS GG 1 CAPSULE. PO SCH ×2 (08:20→20:37)
[2020-10-23] MEDS: LISINOPRIL 20 MG TABLET PO SCH (08:21)
[2020-10-23] MEDS: METOPROLOL SUCC 24HR ER 25 MG TAB.ER.24H. PO SCH (08:22)
--- NOTE | 2020-10-23 08:32 | PDOC ---
Infectious Disease Note Subjective: Subjective Pt says feels better no f/n/v/d Vital Signs: Vital Signs Vital Signs Date Time Temp Pulse Resp B/P (MAP) Pulse Ox O2 Delivery O2 Flow Rate FiO2 10/23/20 08:22 80 132/66 10/23/20 07:15 98.3 14 96 Room Air 98.3 Physical Exam: PHYSICAL EXAM GENERAL: Alert, oriented x 3, lying in bed comfortably, in no acute distress. HEENT: Normocephalic, atraumatic. Anicteric. NECK: Supple. No JVD. LUNGS: Clear bilaterally. No wheezing. HEART: S1, S2. Tachycardia, No gallops or murmurs. ABDOMEN: Soft, nontender, nondistended. No rebound or guarding. : rivas in place EXTREMITIES: No edema or cyanosis MUSCULOSKELETAL: No joint swelling. No decrease in range of motion. CENTRAL NERVOUS SYSTEM: Alert, oriented x 3, grossly nonfocal. PSYCHIATRIC: Cooperative, calm. LINES: looks clean. Medications: Inpatient Meds: Medications reviewed. Labs: Lab Laboratory Tests Test 10/23/20 06:45 White Blood Count 5.7 x10^3/uL (4.0-11.0) Red Blood Count 5.38 x10^6/uL (4.30-5.70) Hemoglobin 12.8 g/dL (13.0-17.5) Hematocrit 40.3 % (39.0-53.0) Mean Corpuscular Volume 75 fL (79-100) Mean Corpuscular Hemoglobin 24 pg (25-35) Mean Corpuscular Hemoglobin Concent 32 g/dL (31-37) Red Cell Distribution Width 15.1 % (11.5-14.5) Platelet Count 357 x10^3/uL (140-400) Neutrophils (%) (Auto) 60 % (31-73) Lymphocytes (%) (Auto) 24 % (24-48) Monocytes (%) (Auto) 14 % (0-9) Eosinophils (%) (Auto) 2 % (0-3) Basophils (%) (Auto) 1 % (0-3) Neutrophils # (Auto) 3.4 x10^3/uL (1.8-7.7) Lymphocytes # (Auto) 1.4 x10^3/uL (1.0-4.8) Monocytes # (Auto) 0.8 x10^3/uL (0.0-1.1) Eosinophils # (Auto) 0.1 x10^3/uL (0.0-0.7) Basophils # (Auto) 0.0 x10^3/uL (0.0-0.2) Sodium Level 140 mmol/L (136-145) Potassium Level 5.0 mmol/L (3.5-5.1) Chloride Level 104 mmol/L (98-107) Carbon Dioxide Level 32 mmol/L (21-32) Anion Gap 4 (6-14) Blood Urea Nitrogen 11 mg/dL (8-26) Creatinine 1.0 mg/dL (0.7-1.3) Estimated GFR (Cockcroft-Gault) 85.9 Glucose Level 96 mg/dL (70-99) Calcium Level 9.1 mg/dL (8.5-10.1) Magnesium Level 2.3 mg/dL (1.8-2.4) Micro Renal Ultrasound IMPRESSION: 1. 4.2 cm simple right renal cyst. Follow up is not routinely performed for simple cysts. 2. 2.5 cm complicated left renal cyst with internal septation. Short-term follow-up in 6 months with a sonogram or a renal protocol CT or MRI can be performed to confirm benignity. 3. Prostatomegaly. There is a masslike lesion within the bladder base which may be due to mass effect from the aforementioned prostate. The possibility of a bladder neoplasm is not excluded. Cystoscopy or a CT urogram may be useful for characterization. 4. Suspected Rivas catheter balloon along the superior aspect of the bladder wall. Correlate with catheter output. Objective: Assessment: Complicated UTI Proteus BPH,abn renal on u/s Aflutter with RVR Hypertension/hyperlipidemia JERRY Penicillin allergy unknown reaction does not recall taking amoxicillin or Augmentin Recurrent UTIs Plan: Plan of Care Cont ceftriaxone Monitor labs and cultures Continue supportive care Pt is requesting transfer to center with urology consultants SUKH WHIPPLE MD Oct 23, 2020 08:32
[2020-10-23 10:50] VITALS: BP 145/73
--- NOTE | 2020-10-23 12:05 | PDOC ---
BRIANDA IBARRA [employer] 10/23/20 1205: CARDIO Progress Notes Date and Time Date of Service 10/23/2020 Time of Evaluation 1200 Subjective Subjective: No Chest Pain, No shortness of breath, No Palpitations Vitals Vitals Vital Signs Date Time Temp Pulse Resp B/P (MAP) Pulse Ox O2 Delivery O2 Flow Rate FiO2 10/23/20 10:50 97.3 125 16 145/73 (97) 97 Room Air 97.3 Weight Weight [ ] Input and Output Intake and Output Intake and Output 10/23/20 07:00 Intake Total 600 ml Balance 600 ml Intake Oral 600 ml Laboratory Labs Laboratory Tests Test 10/23/20 06:45 White Blood Count 5.7 x10^3/uL (4.0-11.0) Red Blood Count 5.38 x10^6/uL (4.30-5.70) Hemoglobin 12.8 g/dL (13.0-17.5) Hematocrit 40.3 % (39.0-53.0) Mean Corpuscular Volume 75 fL (79-100) Mean Corpuscular Hemoglobin 24 pg (25-35) Mean Corpuscular Hemoglobin Concent 32 g/dL (31-37) Red Cell Distribution Width 15.1 % (11.5-14.5) Platelet Count 357 x10^3/uL (140-400) Neutrophils (%) (Auto) 60 % (31-73) Lymphocytes (%) (Auto) 24 % (24-48) Monocytes (%) (Auto) 14 % (0-9) Eosinophils (%) (Auto) 2 % (0-3) Basophils (%) (Auto) 1 % (0-3) Neutrophils # (Auto) 3.4 x10^3/uL (1.8-7.7) Lymphocytes # (Auto) 1.4 x10^3/uL (1.0-4.8) Monocytes # (Auto) 0.8 x10^3/uL (0.0-1.1) Eosinophils # (Auto) 0.1 x10^3/uL (0.0-0.7) Basophils # (Auto) 0.0 x10^3/uL (0.0-0.2) Sodium Level 140 mmol/L (136-145) Potassium Level 5.0 mmol/L (3.5-5.1) Chloride Level 104 mmol/L (98-107) Carbon Dioxide Level 32 mmol/L (21-32) Anion Gap 4 (6-14) Blood Urea Nitrogen 11 mg/dL (8-26) Creatinine 1.0 mg/dL (0.7-1.3) Estimated GFR (Cockcroft-Gault) 85.9 Glucose Level 96 mg/dL (70-99) Calcium Level 9.1 mg/dL (8.5-10.1) Magnesium Level 2.3 mg/dL (1.8-2.4) Microbiology Micro Microbiology 10/20/20 Urine Culture - Final, Complete 10/20/20 Antimicrobic Susceptibility - Final, Complete Physical Exam HEENT: Neck Supple W Full Motion Chest: Symmetric LUNGS: Clear to Auscultation Heart: irregularly irregular (AFIB/flutter, rate 95-120) Abdomen: Soft N/T Extremities: No Edema Neurology: alert, oriented, follow commands Assessment Assessment 1. BPH, urinary retention, UTI; as per IM 2. Aflutter with RVR; new finding. rate better at 90-120 Echo showed preserved LV systolic function 3. Mild troponin elevation; initial 0.07. Most probably type II, demand ischemia. CP free. Stress test 04/18 without evidence of ischemia as noted above. 4. Hypertension; controlled 5. Hyperlipidemia; LDL 114 6. JERRY; resolved 7. Chronic RBBB Recommendations Continue metoprolol and cardizem. Decrease lisinopril to make more room for rate controlling agents. increase cardizem CD Low dose Eliquis for stroke prophylaxis Consider outpatient cardioversion if patient remains in AFIB ASA and statin Justicifation of Admission Dx: Justifications for Admission: Justification of Admission Dx: Yes OJ WALSH MD 10/24/20 0635: CARDIO Progress Notes Plan Plan Late entry for 10/23/20 Pt. seen and examined. Agree with above [employer] note Supportive care. BRIANDA IBARRA [employer] [facility] Oct 23, 2020 12:05 OJ WALSH MD Oct 24, 2020 06:35
--- NOTE | 2020-10-23 13:45 | NUR ---
SW following. Discussed with RN, pt from home alone, room air, cardiac diet, gets around fine. ID and Cardiology following. RN advised no SW needs at this time. SW will continue to follow.
--- NOTE | 2020-10-23 13:53 | PDOC ---
[employer] PROGRESS NOTE Date of Service DOS: DATE: 10/23/20 TIME: 13:50 Chief Complaint Chief Complaint Dysuria History of Present Illness History of Present Illness 85-year-old male with past medical history of depression, anxiety, dyslipidemia and BPH who presents to the ED with complaints of difficulty urinating. This has been occurring for the last several weeks. Patient complains of burning upon urination but denies any suprapubic tenderness or abdominal pain. Denies any hematuria, bloody stools, chest pain, shortness of breath or headaches or syncope. Upon arrival to the ED patient was found to have elevated heart rate to the 160s. Telemonitoring and EKG did showed atrial flutter. Cardiology was consulted. Patient was given several doses of diltiazem boluses and there was some improvement down to the 120s. Eventually patient was kept on diltiazem drip. 10/21/20 Evaluated at bedside. Patient was evaluated. Rivas's catheter is in place colored urine. Continue antibiotics for UTI treatment. Cardiology following for atrial flutter. Starting low-dose Eliquis today for stroke prevention. Otherwise continue current plan. Plan of care discussed with bedside RN. 10/22/20 Patient evaluated at bedside. Changing antibiotics cefepime to Rocephin. Will need urology follow-up after discharge. Otherwise doing well this morning. He does remain significantly tachycardic on telemetry this morning but appeared to have a normal rate overnight. Cardiology and infectious disease following. Plan of care discussed with bedside nurse. Hopeful for discharge before the weekend. 10/23 Patient evaluated at bedside. Still having some runs of a flutter and tachycardia when evaluated. He remains asymptomatic overall. Continuing Rocephin treatment. Patient requesting transfer to facility with urology consultants; informed him that given the current state of the world beds in the area are almost nonexistent and this would not be an accepted transfer and that he would be better off following with them as an outpatient Vitals/I&O Vitals/I&O: Vital Signs Date Time Temp Pulse Resp B/P (MAP) Pulse Ox O2 Delivery O2 Flow Rate FiO2 10/23/20 10:50 97.3 125 16 145/73 (97) 97 Room Air 97.3 I & O 10/22/20 10/22/20 10/23/20 15:00 23:00 07:00 Intake Total 480 ml 120 ml 0 ml Balance 480 ml 120 ml 0 ml Physical Exam Physical Exam: GENERAL: Alert, oriented x 3, lying in bed comfortably, in no acute distress. HEENT: Normocephalic, atraumatic. Anicteric. NECK: Supple. No JVD. LUNGS: Clear bilaterally. No wheezing. HEART: S1, S2. Tachycardia, No gallops or murmurs. ABDOMEN: Soft, nontender, nondistended. No rebound or guarding. : rivas in place EXTREMITIES: No edema or cyanosis MUSCULOSKELETAL: No joint swelling. No decrease in range of motion. CENTRAL NERVOUS SYSTEM: Alert, oriented x 3, grossly nonfocal. PSYCHIATRIC: Cooperative, calm. LINES: looks clean. General: Alert, Oriented X3, Cooperative, No acute distress Heart: Other (irregular rhythm and rate) Lungs: Clear Abdomen: Soft, No tenderness Extremities: No edema, Normal pulses Skin: No significant lesion Labs Labs: Laboratory Tests Test 10/23/20 06:45 White Blood Count 5.7 x10^3/uL (4.0-11.0) Red Blood Count 5.38 x10^6/uL (4.30-5.70) Hemoglobin 12.8 g/dL (13.0-17.5) Hematocrit 40.3 % (39.0-53.0) Mean Corpuscular Volume 75 fL (79-100) Mean Corpuscular Hemoglobin 24 pg (25-35) Mean Corpuscular Hemoglobin Concent 32 g/dL (31-37) Red Cell Distribution Width 15.1 % (11.5-14.5) Platelet Count 357 x10^3/uL (140-400) Neutrophils (%) (Auto) 60 % (31-73) Lymphocytes (%) (Auto) 24 % (24-48) Monocytes (%) (Auto) 14 % (0-9) Eosinophils (%) (Auto) 2 % (0-3) Basophils (%) (Auto) 1 % (0-3) Neutrophils # (Auto) 3.4 x10^3/uL (1.8-7.7) Lymphocytes # (Auto) 1.4 x10^3/uL (1.0-4.8) Monocytes # (Auto) 0.8 x10^3/uL (0.0-1.1) Eosinophils # (Auto) 0.1 x10^3/uL (0.0-0.7) Basophils # (Auto) 0.0 x10^3/uL (0.0-0.2) Sodium Level 140 mmol/L (136-145) Potassium Level 5.0 mmol/L (3.5-5.1) Chloride Level 104 mmol/L (98-107) Carbon Dioxide Level 32 mmol/L (21-32) Anion Gap 4 (6-14) Blood Urea Nitrogen 11 mg/dL (8-26) Creatinine 1.0 mg/dL (0.7-1.3) Estimated GFR (Cockcroft-Gault) 85.9 Glucose Level 96 mg/dL (70-99) Calcium Level 9.1 mg/dL (8.5-10.1) Magnesium Level 2.3 mg/dL (1.8-2.4) Assessment and Plan Assessmemt and Plan Problems Medical Problems: (1) Atrial flutter Status: Acute (2) Atrial flutter with rapid ventricular response Status: Acute (3) UTI (urinary tract infection) Status: Acute Assessment/Plan Acute complicated cystitis, urine culture positive in 05/20/2020 for Aerococcus urinae; positive Proteus for this admission New onset atrial flutter JERRY due to vasomotor nephropathy Elevated troponins likely due to type II demand ischemia Elevated troponin suggestive of volume overload History of BPH History of dyslipidemia Admit to hospitalist for further management Cardiology consult Continue telemetry monitoring Received Levaquin and Macrobid in the emergency room; ID consulted started on cefepime changed to Rocephin October 22 Pending urine cultures, prelim shows greater than 100,000 colonies speciated to Proteus ID consult Heparin for DVT prophylaxis Cardiac diet Full code Discussed with RN and SW Disposition inpatient management as above Surrogate decision maker is Emelia Bolden Comment Review of Relevant I have reviewed the following items veto (where applicable) has been applied. Medications: Current Medications Medications (Trade) Dose Ordered Sig/Beau Route PRN Reason Start Time Stop Time Status Last Admin Dose Admin Ceftriaxone Sodium (Rocephin) 1 gm Q24H IVP 10/22/20 17:00 10/22/20 17:03 Diltiazem HCl (Cardizem 24hr Cd) 120 mg DAILY PO 10/22/20 17:00 10/23/20 13:24 DC 10/23/20 08:21 Lactobacillus Rhamnosus (Culturelle) 1 cap BID PO 10/22/20 21:00 10/23/20 08:20 Justifications for Admission Other Justification UTI HELGA ESCALANTE MD Oct 23, 2020 13:53
[2020-10-23 15:18] VITALS: BP 128/70
[2020-10-23] MEDS: cefTRIAXone IV Push 1 GM VIAL. IVP SCH (18:07)
[2020-10-23 19:00] VITALS: BP 117/42
[2020-10-23] MEDS: TAMSULOSIN 0.4 MG CAP.ER.24H. PO SCH (20:37)
[2020-10-23] MEDS: ATORVASTATIN CALCIUM 20 MG TABLET PO SCH (20:37)
[2020-10-23] MEDS: ACETAMINOPHEN 325 MG TABLET. PO PRN (20:40)
[2020-10-23 23:00] VITALS: BP 113/62
[2020-10-24 03:00] VITALS: BP 142/74
[2020-10-24 06:59] VITALS: BP 141/63
--- NOTE | 2020-10-24 07:44 | PDOC ---
Infectious Disease Note Subjective: Subjective Pt says feels better no f/n/v/d Vital Signs: Vital Signs Vital Signs Date Time Temp Pulse Resp B/P (MAP) Pulse Ox O2 Delivery O2 Flow Rate FiO2 10/24/20 06:59 98.1 73 18 141/63 (89) 96 Room Air 98.1 Physical Exam: PHYSICAL EXAM GENERAL: Alert, oriented x 3, lying in bed comfortably, in no acute distress. HEENT: Normocephalic, atraumatic. Anicteric. NECK: Supple. No JVD. LUNGS: Clear bilaterally. No wheezing. HEART: S1, S2. Tachycardia, No gallops or murmurs. ABDOMEN: Soft, nontender, nondistended. No rebound or guarding. : rivas in place EXTREMITIES: No edema or cyanosis MUSCULOSKELETAL: No joint swelling. No decrease in range of motion. CENTRAL NERVOUS SYSTEM: Alert, oriented x 3, grossly nonfocal. PSYCHIATRIC: Cooperative, calm. LINES: looks clean. Medications: Inpatient Meds: Medications reviewed. Labs: Micro Renal Ultrasound IMPRESSION: 1. 4.2 cm simple right renal cyst. Follow up is not routinely performed for simple cysts. 2. 2.5 cm complicated left renal cyst with internal septation. Short-term follow-up in 6 months with a sonogram or a renal protocol CT or MRI can be performed to confirm benignity. 3. Prostatomegaly. There is a masslike lesion within the bladder base which may be due to mass effect from the aforementioned prostate. The possibility of a bladder neoplasm is not excluded. Cystoscopy or a CT urogram may be useful for characterization. 4. Suspected Rivas catheter balloon along the superior aspect of the bladder wall. Correlate with catheter output. Objective: Assessment: Complicated UTI Proteus BPH,abn renal on u/s Aflutter with RVR Hypertension/hyperlipidemia JERRY Penicillin allergy unknown reaction does not recall taking amoxicillin or Augmentin Recurrent UTIs Plan: Plan of Care Cont ceftriaxone Monitor labs and cultures Continue supportive care Pt is requesting transfer to center with urology consultants ,not available at this center SUKH WHIPPLE MD Oct 24, 2020 07:43
[2020-10-24] MEDS: APIXABAN 2.5 MG TABLET. PO SCH ×2 (10:33→21:52)
[2020-10-24] MEDS: ACETAMINOPHEN 325 MG TABLET. PO PRN (10:33)
[2020-10-24] MEDS: METOPROLOL SUCC 24HR ER 25 MG TAB.ER.24H. PO SCH (10:33)
[2020-10-24] MEDS: ASPIRIN ENTERIC COATED 81 MG TABLET.DR. PO SCH (10:33)
[2020-10-24] MEDS: LACTOBACILLUS RHAMNOSUS GG 1 CAPSULE. PO SCH ×2 (10:33→21:52)
[2020-10-24] MEDS: LISINOPRIL 5 MG TABLET. PO SCH (10:34)
[2020-10-24 11:00] VITALS: BP 137/59
[2020-10-24 15:00] VITALS: BP 134/72
[2020-10-24] MEDS: cefTRIAXone IV Push 1 GM VIAL. IVP SCH (17:24)
[2020-10-24] MEDS ORDERED: ANTI-COAG MONITOR BY PHARMACY. MC PRN (18:15)
[2020-10-24 19:00] VITALS: BP 133/72
--- NOTE | 2020-10-24 19:55 | PDOC ---
GENERAL General: Patient examined chart reviewed today's hospital day 5 for this patient admitted with complex urinary tract infection and postobstructive nephropathy. He has been very concerned about his ongoing urologic issues and wishes that he was able to consult with urology at this point. He does understand that it will be exceedingly difficult to move him to another hospital given the surgery and Covid cases in the region and that his urologic issue does not require urgent inpatient attention rather urgent outpatient attention. We will need to find him a urologist for post hospital follow-up ASHOK. He does not want to drive down to [facility] and thinks that he will need to get to if he can find someone to take him. We appreciate subspecialty support. We will reassess whether a voiding trial would be appropriate prior to discharge especially given that his Suh catheter is leaking around it. Hopefully with treatment of urinary tract infection he will have better flow. Time spent today is 30 minutes with greater than 50% in counseling and coordination of care most of which in discussion with patient. Problems: (1) UTI (urinary tract infection) (2) Atrial flutter with rapid ventricular response VITAL SIGNS Vital Signs/I&O: Vital Signs Date Time Temp Pulse Resp B/P (MAP) Pulse Ox O2 Delivery O2 Flow Rate FiO2 10/24/20 15:00 97.8 78 16 134/72 (92) 96 Room Air 97.8 I & O 10/23/20 10/23/20 10/24/20 15:00 23:00 07:00 Intake Total 600 ml 360 ml Output Total 700 ml Balance 600 ml -340 ml In general the patient is pleasant alert and oriented x3 no acute distress HEENT exam is unremarkable Neck is soft and supple no adenopathy or thyromegaly noted Chest is clear to auscultation Heart S1-S2 normal regular rate and rhythm no murmurs or gallops are noted Abdomen soft nontender nondistended no masses organomegaly noted. The Suh catheter is leaking urine around it Extremity exam is unremarkable for acute abnormality ALLERGIES Allergies: Allergies Coded Allergies Type Severity Reaction Last Updated Verified Penicillins Allergy Intermediate RASH 10/26/14 Yes aspirin Adverse Reaction Mild Nausea 07/14/20 Yes MEDS Medications: Current Medications Medications (Trade) Dose Ordered Sig/Beau Start Time Stop Time Status Last Admin Dose Admin Acetaminophen (Tylenol) 650 mg PRN Q4HRS PRN 10/20/20 15:30 10/24/20 10:33 Apixaban (Eliquis) 2.5 mg BID 10/21/20 10:30 10/24/20 10:33 Aspirin (Ecotrin) 81 mg DAILYWBKFT 10/21/20 08:00 10/24/20 10:33 Atorvastatin Calcium (Lipitor) 20 mg QHS 10/21/20 21:00 10/23/20 20:37 Cefepime HCl (Maxipime) 2 gm Q12HR 10/21/20 21:00 10/22/20 15:45 DC 10/22/20 08:56 Ceftriaxone Sodium (Rocephin) 1 gm Q24H 10/22/20 17:00 10/24/20 17:24 Dextrose (Dextrose 50%-Water Syringe) 12.5 gm PRN Q15MIN PRN 10/20/20 15:30 Digoxin (Lanoxin) 500 mcg 1X ONCE 10/21/20 15:00 10/21/20 15:01 DC 10/21/20 15:16 Diltiazem HCl (Cardizem 24hr Cd) 180 mg DAILY 10/24/20 09:00 10/24/20 10:34 Diltiazem HCl (Cardizem Iv Push) 15 mg 1X ONCE 10/20/20 11:00 10/20/20 11:01 DC 10/20/20 11:20 Diltiazem HCl 125 mg/Sodium Chloride 125 ml @ 5 mls/hr CONT PRN 10/20/20 12:00 Docusate Sodium (Colace) 100 mg PRN DAILY PRN 10/20/20 15:30 Enoxaparin Sodium (Lovenox 80mg Syringe) 80 mg 1X ONCE 10/20/20 16:30 10/20/20 16:36 DC 10/20/20 17:05 Heparin Sodium (Porcine) (Heparin Sodium) 5,000 unit Q12HR 10/20/20 21:00 10/21/20 09:47 DC 10/21/20 08:36 Info (Anti-Coagulation Monitoring By Pharmacy) 1 each PRN DAILY PRN 10/24/20 18:15 10/24/20 18:06 Lactobacillus Rhamnosus (Culturelle) 1 cap BID 10/22/20 21:00 10/24/20 10:33 Levofloxacin/ Dextrose 50 ml @ 50 mls/hr Q24H 10/20/20 12:00 10/21/20 10:45 DC 10/20/20 12:07 Levofloxacin/ Dextrose (Levaquin Per Pharmacy) 1 each PRN DAILY PRN 10/20/20 11:15 10/21/20 10:45 DC Lisinopril (Prinivil) 5 mg DAILY 10/24/20 09:00 10/24/20 10:34 Metoprolol Succinate (Toprol Xl) 100 mg DAILY 10/22/20 09:00 10/24/20 10:33 Metoprolol Tartrate (Lopressor Vial) 5 mg PRN Q4HRS PRN 10/20/20 19:45 10/21/20 05:49 Nitrofurantoin Macrocrystals (Macrobid) 100 mg BID 10/20/20 21:00 10/21/20 10:45 DC 10/21/20 08:30 Ondansetron HCl (Zofran) 4 mg PRN Q6HRS PRN 10/20/20 15:30 Prochlorperazine Edisylate (Compazine) 10 mg PRN Q6HRS PRN 10/20/20 15:30 Ringer's Solution 1,000 ml @ 1,000 mls/hr Q1H 10/20/20 10:15 10/20/20 11:14 DC 10/20/20 10:35 Sennosides (Senna) 17.2 mg PRN BID PRN 10/20/20 15:30 Sodium Chloride 1,000 ml @ 100 mls/hr 1X ONCE 10/20/20 15:30 10/21/20 01:29 DC 10/20/20 17:03 Tamsulosin HCl (Flomax) 0.4 mg QHS 10/20/20 21:00 10/23/20 20:37 Current Medications Medications (Trade) Dose Ordered Sig/Beau Route PRN Reason Start Time Stop Time Status Last Admin Dose Admin Diltiazem HCl (Cardizem 24hr Cd) 180 mg DAILY PO 10/24/20 09:00 10/24/20 10:34 Lisinopril (Prinivil) 5 mg DAILY PO 10/24/20 09:00 10/24/20 10:34 Info (Anti-Coagulation Monitoring By Pharmacy) 1 each PRN DAILY PRN MC PER PROTOCOL 10/24/20 18:15 10/24/20 18:06 ASSESSMENT & PLAN A&P Plan as noted above This note was created using [employer] and may have omissions and/or errors due to the nature of real-time voice complaint investigator. Justifications for Admission Other Justification UTI EDWIN MI MD Oct 24, 2020 19:55
[2020-10-24] MEDS: ATORVASTATIN CALCIUM 20 MG TABLET PO SCH (21:52)
[2020-10-24] MEDS: TAMSULOSIN 0.4 MG CAP.ER.24H. PO SCH (21:52)
[2020-10-24 23:00] VITALS: BP 119/56
[2020-10-25 03:00] VITALS: BP 138/69
[2020-10-25 07:00] VITALS: BP 141/79
--- NOTE | 2020-10-25 07:44 | PDOC ---
Infectious Disease Note Subjective: Subjective Pt says feels better no f/n/v/d Stressed out as he has enlarged prostate with possible bladder mass and he is requesting transfer to a facility with urology consultants Vital Signs: Vital Signs Vital Signs Date Time Temp Pulse Resp B/P (MAP) Pulse Ox O2 Delivery O2 Flow Rate FiO2 10/25/20 07:00 97.8 80 16 141/79 (99) 95 Room Air 97.8 Physical Exam: PHYSICAL EXAM GENERAL: Alert, oriented x 3, lying in bed comfortably, in no acute distress. HEENT: Normocephalic, atraumatic. Anicteric. NECK: Supple. No JVD. LUNGS: Clear bilaterally. No wheezing. HEART: S1, S2. Tachycardia, No gallops or murmurs. ABDOMEN: Soft, nontender, nondistended. No rebound or guarding. : rivas in place EXTREMITIES: No edema or cyanosis MUSCULOSKELETAL: No joint swelling. No decrease in range of motion. CENTRAL NERVOUS SYSTEM: Alert, oriented x 3, grossly nonfocal. PSYCHIATRIC: Cooperative, calm. LINES: looks clean. Medications: Inpatient Meds: Medications reviewed. Labs: Micro Renal Ultrasound IMPRESSION: 1. 4.2 cm simple right renal cyst. Follow up is not routinely performed for simple cysts. 2. 2.5 cm complicated left renal cyst with internal septation. Short-term follow-up in 6 months with a sonogram or a renal protocol CT or MRI can be performed to confirm benignity. 3. Prostatomegaly. There is a masslike lesion within the bladder base which may be due to mass effect from the aforementioned prostate. The possibility of a bladder neoplasm is not excluded. Cystoscopy or a CT urogram may be useful for characterization. 4. Suspected Rivas catheter balloon along the superior aspect of the bladder wall. Correlate with catheter output. Objective: Assessment: Complicated UTI Proteus BPH,abn renal on u/s with prostatomegaly with bladder base mass Aflutter with RVR Hypertension/hyperlipidemia JERRY Penicillin allergy unknown reaction does not recall taking amoxicillin or Augmentin Recurrent UTIs Plan: Plan of Care Cont ceftriaxone Monitor labs and cultures Continue supportive care Pt is requesting transfer to center with urology consultants ,not available at this center Discussed with nursing staff SUKH WHIPPLE MD Oct 25, 2020 07:44
[2020-10-25] MEDS: ASPIRIN ENTERIC COATED 81 MG TABLET.DR. PO SCH (08:09)
[2020-10-25] MEDS: LACTOBACILLUS RHAMNOSUS GG 1 CAPSULE. PO SCH ×2 (08:09→20:55)
[2020-10-25] MEDS: APIXABAN 2.5 MG TABLET. PO SCH ×2 (08:09→20:55)
[2020-10-25] MEDS: LISINOPRIL 5 MG TABLET. PO SCH (08:09)
[2020-10-25] MEDS: METOPROLOL SUCC 24HR ER 25 MG TAB.ER.24H. PO SCH (08:10)
[2020-10-25 08:19] LABS: BASO % 1 % (0-3); EOS # 0.1 x10^3/uL (0.0-0.7); EOS % 1 % (0-3); HEMATOCRIT 39.8 % (39.0-53.0); LYMPH # 1.4 x10^3/uL (1.0-4.8); LYMPH % 27 % (24-48); MEAN CORPUSCULAR HEMOGLOBIN 24 pg (25-35); MEAN CORPUSCULAR HGB CONC 33 g/dL (31-37); MEAN CORPUSCULAR VOLUME 74 fL (79-100); MONO # 0.7 x10^3/uL (0.0-1.1); MONO % 13 % (0-9); NEUT % 58 % (31-73); PLATELET COUNT 403 x10^3/uL (140-400); RED BLOOD COUNT 5.37 x10^6/uL (4.30-5.70); RED CELL DISTRIBUTION WIDTH 14.9 % (11.5-14.5); WHITE BLOOD COUNT 5.2 x10^3/uL (4.0-11.0)
[2020-10-25 08:59] LABS: ALBUMIN 2.7 g/dL (3.4-5.0); ALBUMIN/GLOBULIN RATIO 0.7 (1.0-1.7); CALCIUM 9.2 mg/dL (8.5-10.1); CREATININE 0.9 mg/dL (0.7-1.3); POTASSIUM 4.8 mmol/L (3.5-5.1); TOTAL BILIRUBIN 0.8 mg/dL (0.2-1.0); TOTAL PROTEIN 6.7 g/dL (6.4-8.2)
--- NOTE | 2020-10-25 10:15 | PDOC ---
GENERAL General: Patient examined chart reviewed appreciate subspecialty support. Patient remains very concerned about a potential discharge home with the indwelling F oley catheter. He says he has no one there to help him and is worried that he may have a complication if he is discharged with it. I told him that I agree with him that we will need to have a very robust discharge plan to avoid readmission. We will assess for eligibility for custodial discharge. I have asked social media marketer case management to look into booking a [facility] urology follow-up appointment for ASHOK with indwelling Suh care with postobstructive nephropathy. It is unlikely that the team here will feel comfortable doing a voiding trial prior to discharge as there is no urology on staff. Time spent today is 30 minutes with greater than 50% in counseling and coordination of care most of which in discussion with patient. VITAL SIGNS Vital Signs/I&O: Vital Signs Date Time Temp Pulse Resp B/P (MAP) Pulse Ox O2 Delivery O2 Flow Rate FiO2 10/25/20 08:10 80 141/79 10/25/20 07:00 97.8 16 95 Room Air 97.8 I & O 10/24/20 10/24/20 10/25/20 15:00 23:00 07:00 Intake Total 100 ml 800 ml Output Total 400 ml 400 ml 1600 ml Balance -400 ml -300 ml -800 ml Patient is resting comfortably alert and oriented x3 no acute distress HEENT exam is unremarkable Chest is clear to auscultation Heart S1-S2 normal regular rate and rhythm no murmurs or gallops are noted Abdomen soft nontender nondistended no masses organomegaly noted Extremity exam is unremarkable for acute abnormality ALLERGIES Allergies: Allergies Coded Allergies Type Severity Reaction Last Updated Verified Penicillins Allergy Intermediate RASH 10/26/14 Yes aspirin Adverse Reaction Mild Nausea 07/14/20 Yes MEDS Medications: Current Medications Medications (Trade) Dose Ordered Sig/Beau Start Time Stop Time Status Last Admin Dose Admin Acetaminophen (Tylenol) 650 mg PRN Q4HRS PRN 10/20/20 15:30 10/24/20 10:33 Apixaban (Eliquis) 2.5 mg BID 10/21/20 10:30 10/25/20 08:09 Aspirin (Ecotrin) 81 mg DAILYWBKFT 10/21/20 08:00 10/25/20 08:09 Atorvastatin Calcium (Lipitor) 20 mg QHS 10/21/20 21:00 10/24/20 21:52 Cefepime HCl (Maxipime) 2 gm Q12HR 10/21/20 21:00 10/22/20 15:45 DC 10/22/20 08:56 Ceftriaxone Sodium (Rocephin) 1 gm Q24H 10/22/20 17:00 10/24/20 17:24 Dextrose (Dextrose 50%-Water Syringe) 12.5 gm PRN Q15MIN PRN 10/20/20 15:30 Digoxin (Lanoxin) 500 mcg 1X ONCE 10/21/20 15:00 10/21/20 15:01 DC 10/21/20 15:16 Diltiazem HCl (Cardizem 24hr Cd) 180 mg DAILY 10/24/20 09:00 10/25/20 08:09 Diltiazem HCl (Cardizem Iv Push) 15 mg 1X ONCE 10/20/20 11:00 10/20/20 11:01 DC 10/20/20 11:20 Diltiazem HCl 125 mg/Sodium Chloride 125 ml @ 5 mls/hr CONT PRN 10/20/20 12:00 Docusate Sodium (Colace) 100 mg PRN DAILY PRN 10/20/20 15:30 Enoxaparin Sodium (Lovenox 80mg Syringe) 80 mg 1X ONCE 10/20/20 16:30 10/20/20 16:36 DC 10/20/20 17:05 Heparin Sodium (Porcine) (Heparin Sodium) 5,000 unit Q12HR 10/20/20 21:00 10/21/20 09:47 DC 10/21/20 08:36 Info (Anti-Coagulation Monitoring By Pharmacy) 1 each PRN DAILY PRN 10/24/20 18:15 10/24/20 18:06 Lactobacillus Rhamnosus (Culturelle) 1 cap BID 10/22/20 21:00 10/25/20 08:09 Levofloxacin/ Dextrose 50 ml @ 50 mls/hr Q24H 10/20/20 12:00 10/21/20 10:45 DC 10/20/20 12:07 Levofloxacin/ Dextrose (Levaquin Per Pharmacy) 1 each PRN DAILY PRN 10/20/20 11:15 10/21/20 10:45 DC Lisinopril (Prinivil) 5 mg DAILY 10/24/20 09:00 10/25/20 08:09 Metoprolol Succinate (Toprol Xl) 100 mg DAILY 10/22/20 09:00 10/25/20 08:10 Metoprolol Tartrate (Lopressor Vial) 5 mg PRN Q4HRS PRN 10/20/20 19:45 10/21/20 05:49 Nitrofurantoin Macrocrystals (Macrobid) 100 mg BID 10/20/20 21:00 10/21/20 10:45 DC 10/21/20 08:30 Ondansetron HCl (Zofran) 4 mg PRN Q6HRS PRN 10/20/20 15:30 Prochlorperazine Edisylate (Compazine) 10 mg PRN Q6HRS PRN 10/20/20 15:30 Ringer's Solution 1,000 ml @ 1,000 mls/hr Q1H 10/20/20 10:15 10/20/20 11:14 DC 10/20/20 10:35 Sennosides (Senna) 17.2 mg PRN BID PRN 10/20/20 15:30 Sodium Chloride 1,000 ml @ 100 mls/hr 1X ONCE 10/20/20 15:30 10/21/20 01:29 DC 10/20/20 17:03 Tamsulosin HCl (Flomax) 0.4 mg QHS 10/20/20 21:00 10/24/20 21:52 Current Medications Medications (Trade) Dose Ordered Sig/Beau Route PRN Reason Start Time Stop Time Status Last Admin Dose Admin Info (Anti-Coagulation Monitoring By Pharmacy) 1 each PRN DAILY PRN MC PER PROTOCOL 10/24/20 18:15 10/24/20 18:06 LAB Lab: Laboratory Tests Test 10/25/20 07:10 10/25/20 07:15 White Blood Count 5.2 x10^3/uL (4.0-11.0) Red Blood Count 5.37 x10^6/uL (4.30-5.70) Hemoglobin 13.0 g/dL (13.0-17.5) Hematocrit 39.8 % (39.0-53.0) Mean Corpuscular Volume 74 fL (79-100) L Mean Corpuscular Hemoglobin 24 pg (25-35) L Mean Corpuscular Hemoglobin Concent 33 g/dL (31-37) Red Cell Distribution Width 14.9 % (11.5-14.5) H Platelet Count 403 x10^3/uL (140-400) H Neutrophils (%) (Auto) 58 % (31-73) Lymphocytes (%) (Auto) 27 % (24-48) Monocytes (%) (Auto) 13 % (0-9) H Eosinophils (%) (Auto) 1 % (0-3) Basophils (%) (Auto) 1 % (0-3) Neutrophils # (Auto) 3.0 x10^3/uL (1.8-7.7) Lymphocytes # (Auto) 1.4 x10^3/uL (1.0-4.8) Monocytes # (Auto) 0.7 x10^3/uL (0.0-1.1) Eosinophils # (Auto) 0.1 x10^3/uL (0.0-0.7) Basophils # (Auto) 0.0 x10^3/uL (0.0-0.2) Platelet Estimate Pending Sodium Level 142 mmol/L (136-145) Potassium Level 4.8 mmol/L (3.5-5.1) Chloride Level 104 mmol/L (98-107) Carbon Dioxide Level 28 mmol/L (21-32) Anion Gap 10 (6-14) Blood Urea Nitrogen 7 mg/dL (8-26) L Creatinine 0.9 mg/dL (0.7-1.3) Estimated GFR (Cockcroft-Gault) 97.0 BUN/Creatinine Ratio 8 (6-20) Glucose Level 96 mg/dL (70-99) Calcium Level 9.2 mg/dL (8.5-10.1) Total Bilirubin 0.8 mg/dL (0.2-1.0) Aspartate Amino Transferase (AST) 58 U/L (15-37) H Alanine Aminotransferase (ALT) 100 U/L (16-63) H Alkaline Phosphatase 70 U/L (46-116) Total Protein 6.7 g/dL (6.4-8.2) Albumin 2.7 g/dL (3.4-5.0) L Albumin/Globulin Ratio 0.7 (1.0-1.7) L Laboratory Tests 10/25/20 07:10 Laboratory Tests 10/25/20 07:15 ASSESSMENT & PLAN A&P Plan as noted above This note was created using [employer] and may have omissions and/or errors due to the nature of real-time voice phone technician. Justifications for Admission Other Justification UTI EDWIN MI MD Oct 25, 2020 10:15
[2020-10-25 11:00] VITALS: BP 130/64
[2020-10-25 12:01] LABS: % BANDS 1 % (0-9); % EOS 1 % (0-5); % LYMPHS 28 % (24-48); % METAS 1 % (0-0); % MONOS 11 % (0-10); % SEGS 58 % (35-66)
[2020-10-25 12:02] LABS: PLT ESTIMATE ADEQUATE (ADEQUATE)
[2020-10-25 15:00] VITALS: BP 131/76
[2020-10-25] MEDS: cefTRIAXone IV Push 1 GM VIAL. IVP SCH (16:21)
[2020-10-25 19:55] VITALS: BP 120/73
[2020-10-25] MEDS: TAMSULOSIN 0.4 MG CAP.ER.24H. PO SCH (20:55)
[2020-10-25] MEDS: ATORVASTATIN CALCIUM 20 MG TABLET PO SCH (20:55)
[2020-10-26 03:02] VITALS: BP 121/66
[2020-10-26 05:35] LABS: BASO % 1 % (0-3); EOS # 0.1 x10^3/uL (0.0-0.7); EOS % 1 % (0-3); HEMATOCRIT 38.2 % (39.0-53.0); HEMOGLOBIN 12.1 g/dL (13.0-17.5); LYMPH # 1.6 x10^3/uL (1.0-4.8); LYMPH % 33 % (24-48); MEAN CORPUSCULAR HEMOGLOBIN 24 pg (25-35); MEAN CORPUSCULAR HGB CONC 32 g/dL (31-37); MEAN CORPUSCULAR VOLUME 74 fL (79-100); MONO # 0.6 x10^3/uL (0.0-1.1); MONO % 12 % (0-9); NEUT # 2.6 x10^3/uL (1.8-7.7); NEUT % 53 % (31-73); PLATELET COUNT 395 x10^3/uL (140-400); RED BLOOD COUNT 5.13 x10^6/uL (4.30-5.70); RED CELL DISTRIBUTION WIDTH 14.9 % (11.5-14.5)
[2020-10-26 06:00] LABS: ALBUMIN 2.6 g/dL (3.4-5.0); ALBUMIN/GLOBULIN RATIO 0.7 (1.0-1.7); CALCIUM 9.1 mg/dL (8.5-10.1); CREATININE 0.9 mg/dL (0.7-1.3); TOTAL BILIRUBIN 0.5 mg/dL (0.2-1.0); TOTAL PROTEIN 6.2 g/dL (6.4-8.2)
[2020-10-26 07:00] VITALS: BP 130/79
--- NOTE | 2020-10-26 08:23 | RAD ---
EXAM: ULTRASOUND ABDOMEN COMPLETE CLINICAL HISTORY: Reason: elevated LFTs / Spl. Instructions: / History: COMPARISON: None available. TECHNIQUE: Ultrasound of the upper abdomen was performed. FINDINGS: Examination is limited by overlying bowel gas and suboptimal sonographic windows, particularly the mi dline structures. The head and body of the pancreas are unremarkable. The tail is obscured by intestinal gas.. The liver measures 15 cm in length in the right mid clavicular line. The hepatic margin is smooth an d the hepatic echogenicity is normal. There are no focal liver lesions. Flow seen within the portal veins. She shadowing of the gallbladder likely from cholelithiasis. No obvious wall thickening or pericholec ystic fluid. There is no pain with direct transducer pressure over the gallbladder. The common bile duct measures 0.3 cm. The spleen measures 8.7 cm. The right kidney measures 11.7 cm in bipolar length. Normal renal cortical echotexture and thickness. No hydronephrosis or shadowing renal calculus. Simple appearing cyst measures 3.4 cm in the upper po le. The left kidney measures 11.5 cm in bipolar length. Normal renal cortical echotexture and thickness. No hydronephrosis or shadowing renal calculus. Hypoechoic, solid-appearing lesion in the interpolar l eft kidney measures 2.1 x 2.3 x 2.5 cm. Visualized portions of the abdominal aorta and inferior vena cava are unremarkable. There is no free fluid in the upper abdomen. IMPRESSION: 1. Solid-appearing lesion in the interpolar left kidney measures 2.5 cm should be further assessed b y multiphase MRI. 2. Simple appearing right interpolar renal cyst. 3. Extensive cholelithiasis with diffuse shadowing of the gallbladder without definite sonographic e vidence for cholecystitis. Electronically signed by: Tomi Bender MD (10/26/2020 8:20 AM) [facility]
[2020-10-26] MEDS: LACTOBACILLUS RHAMNOSUS GG 1 CAPSULE. PO SCH (08:27)
[2020-10-26] MEDS: ASPIRIN ENTERIC COATED 81 MG TABLET.DR. PO SCH (08:27)
[2020-10-26] MEDS: METOPROLOL SUCC 24HR ER 25 MG TAB.ER.24H. PO SCH (08:28)
[2020-10-26] MEDS: LISINOPRIL 5 MG TABLET. PO SCH (08:28)
--- NOTE | 2020-10-26 09:10 | PDOC ---
Infectious Disease Note Subjective Subjective Pt says feels better no f/n/v/d ROS ROS no pain, no fever Vital Sign Vital Signs Vital Signs Date Time Temp Pulse Resp B/P (MAP) Pulse Ox O2 Delivery O2 Flow Rate FiO2 10/26/20 08:30 Room Air 10/26/20 08:28 79 130/79 10/26/20 07:00 97.8 20 98 97.8 Physical Exam PHYSICAL EXAM GENERAL: Alert, oriented x 3, lying in bed comfortably, in no acute distress. HEENT: Normocephalic, atraumatic. Anicteric. NECK: Supple. No JVD. LUNGS: Clear bilaterally. No wheezing. HEART: S1, S2. Tachycardia, No gallops or murmurs. ABDOMEN: Soft, nontender, nondistended. No rebound or guarding. : rivas in place EXTREMITIES: No edema or cyanosis MUSCULOSKELETAL: No joint swelling. No decrease in range of motion. CENTRAL NERVOUS SYSTEM: Alert, oriented x 3, grossly nonfocal. PSYCHIATRIC: Cooperative, calm. LINES: looks clean. Labs Lab Laboratory Tests Test 10/26/20 03:55 White Blood Count 5.0 x10^3/uL (4.0-11.0) Red Blood Count 5.13 x10^6/uL (4.30-5.70) Hemoglobin 12.1 g/dL (13.0-17.5) Hematocrit 38.2 % (39.0-53.0) Mean Corpuscular Volume 74 fL (79-100) Mean Corpuscular Hemoglobin 24 pg (25-35) Mean Corpuscular Hemoglobin Concent 32 g/dL (31-37) Red Cell Distribution Width 14.9 % (11.5-14.5) Platelet Count 395 x10^3/uL (140-400) Neutrophils (%) (Auto) 53 % (31-73) Lymphocytes (%) (Auto) 33 % (24-48) Monocytes (%) (Auto) 12 % (0-9) Eosinophils (%) (Auto) 1 % (0-3) Basophils (%) (Auto) 1 % (0-3) Neutrophils # (Auto) 2.6 x10^3/uL (1.8-7.7) Lymphocytes # (Auto) 1.6 x10^3/uL (1.0-4.8) Monocytes # (Auto) 0.6 x10^3/uL (0.0-1.1) Eosinophils # (Auto) 0.1 x10^3/uL (0.0-0.7) Basophils # (Auto) 0.0 x10^3/uL (0.0-0.2) Sodium Level 141 mmol/L (136-145) Potassium Level 4.0 mmol/L (3.5-5.1) Chloride Level 107 mmol/L (98-107) Carbon Dioxide Level 29 mmol/L (21-32) Anion Gap 5 (6-14) Blood Urea Nitrogen 5 mg/dL (8-26) Creatinine 0.9 mg/dL (0.7-1.3) Estimated GFR (Cockcroft-Gault) 97.0 BUN/Creatinine Ratio 6 (6-20) Glucose Level 98 mg/dL (70-99) Calcium Level 9.1 mg/dL (8.5-10.1) Total Bilirubin 0.5 mg/dL (0.2-1.0) Aspartate Amino Transf (AST/SGOT) 42 U/L (15-37) Alanine Aminotransferase (ALT/SGPT) 72 U/L (16-63) Alkaline Phosphatase 77 U/L (46-116) Total Protein 6.2 g/dL (6.4-8.2) Albumin 2.6 g/dL (3.4-5.0) Albumin/Globulin Ratio 0.7 (1.0-1.7) Micro Objective Assessment Complicated UTI Proteus BPH,abn renal on u/s with prostatomegaly with bladder base mass Aflutter with RVR Hypertension/hyperlipidemia JERRY Penicillin allergy unknown reaction does not recall taking amoxicillin or Augmentin Recurrent UTIs Plan Plan of Care change iv antibiotics to po cefdinir pt need to see Urology, either transfer or go to SNF and then [facility] with Urology CLARISSE WHIPPLE MD Oct 26, 2020 09:10
[2020-10-26] MEDS: APIXABAN 2.5 MG TABLET. PO SCH (09:56)
[2020-10-26 11:26] VITALS: BP 101/64
--- NOTE | 2020-10-26 13:16 | NUR ---
SW following. Discussed with RN, pt from home alone, room air, cardiac diet, gets around fine. Pt needing a Urology appointment but stating he doesn't have transportation to get to . A[facility]DE tried an inpatient transfer - at capacity and cannot accept for inpatient transfer. AYDE requested Bobo Jackson RN meet with pt to discuss home health and how they might be able to help. AYDE will continue to follow. Addendum: 10/26/20 at 1556 by KENNETH MESSER Pt agreeable to [employer]. Discharge order for home with home health. RN notified.
--- NOTE | 2020-10-26 13:24 | PDOC ---
WOOD ELDER STEWARD/STEWARDESS SECOND 10/26/20 1324: CARDIO Progress Notes Date and Time Date of Service 10/26/20 Time of Evaluation 1300 Subjective Subjective: No Chest Pain, No shortness of breath, No Palpitations Vitals Vitals Vital Signs Date Time Temp Pulse Resp B/P (MAP) Pulse Ox O2 Delivery O2 Flow Rate FiO2 10/26/20 11:26 97.8 79 18 101/64 (76) 96 Room Air 97.8 Weight Weight [ ] Input and Output Intake and Output Intake and Output 10/26/20 06:59 Intake Total 980 ml Output Total 1900 ml Balance -920 ml Intake Oral 980 ml Output Urine Total 1900 ml Laboratory Labs Laboratory Tests Test 10/26/20 03:55 White Blood Count 5.0 x10^3/uL (4.0-11.0) Red Blood Count 5.13 x10^6/uL (4.30-5.70) Hemoglobin 12.1 g/dL (13.0-17.5) Hematocrit 38.2 % (39.0-53.0) Mean Corpuscular Volume 74 fL (79-100) Mean Corpuscular Hemoglobin 24 pg (25-35) Mean Corpuscular Hemoglobin Concent 32 g/dL (31-37) Red Cell Distribution Width 14.9 % (11.5-14.5) Platelet Count 395 x10^3/uL (140-400) Neutrophils (%) (Auto) 53 % (31-73) Lymphocytes (%) (Auto) 33 % (24-48) Monocytes (%) (Auto) 12 % (0-9) Eosinophils (%) (Auto) 1 % (0-3) Basophils (%) (Auto) 1 % (0-3) Neutrophils # (Auto) 2.6 x10^3/uL (1.8-7.7) Lymphocytes # (Auto) 1.6 x10^3/uL (1.0-4.8) Monocytes # (Auto) 0.6 x10^3/uL (0.0-1.1) Eosinophils # (Auto) 0.1 x10^3/uL (0.0-0.7) Basophils # (Auto) 0.0 x10^3/uL (0.0-0.2) Sodium Level 141 mmol/L (136-145) Potassium Level 4.0 mmol/L (3.5-5.1) Chloride Level 107 mmol/L (98-107) Carbon Dioxide Level 29 mmol/L (21-32) Anion Gap 5 (6-14) Blood Urea Nitrogen 5 mg/dL (8-26) Creatinine 0.9 mg/dL (0.7-1.3) Estimated GFR (Cockcroft-Gault) 97.0 BUN/Creatinine Ratio 6 (6-20) Glucose Level 98 mg/dL (70-99) Calcium Level 9.1 mg/dL (8.5-10.1) Total Bilirubin 0.5 mg/dL (0.2-1.0) Aspartate Amino Transf (AST/SGOT) 42 U/L (15-37) Alanine Aminotransferase (ALT/SGPT) 72 U/L (16-63) Alkaline Phosphatase 77 U/L (46-116) Total Protein 6.2 g/dL (6.4-8.2) Albumin 2.6 g/dL (3.4-5.0) Albumin/Globulin Ratio 0.7 (1.0-1.7) Microbiology Micro Microbiology 10/20/20 Urine Culture - Final, Complete 10/20/20 Antimicrobic Susceptibility - Final, Complete Physical Exam HEENT: Neck Supple W Full Motion Chest: Symmetric LUNGS: Clear to Auscultation Heart: irregularly irregular (AFIB/flutter) Abdomen: Soft N/T Extremities: No Edema Neurology: alert, oriented, follow commands Assessment Assessment 1. BPH, urinary retention, UTI; as per IM 2. Aflutter with RVR; new finding. Remains in aflutter. Rate controlled. Echo showed preserved LV systolic function 3. Mild troponin elevation; initial 0.07. Most probably type II, demand ischemia. CP free. Stress test 04/18 without evidence of ischemia as noted above. 4. Hypertension; controlled 5. Hyperlipidemia; LDL 114 6. JERRY; resolved 7. Chronic RBBB Recommendations Continue metoprolol, Cardizem for rate control Low dose Eliquis for stroke prophylaxis Supportive care Consider outpatient cardioversion Follow up in our office with Dr. Vivar as scheduled Justicifation of Admission Dx: Justifications for Admission: Justification of Admission Dx: Yes OJ VIVAR MD 10/26/20 1700: CARDIO Progress Notes Plan Plan The patient was seen and interviewed as well as examined at the bedside. The chart was reviewed. The case was discussed. Agree with the plan of care. WOOD ELDER APRN Oct 26, 2020 13:24 OJ VIVAR MD Oct 26, 2020 17:00
--- NOTE | 2020-10-26 13:58 | PDOC ---
[employer] PROGRESS NOTE Date of Service DOS: DATE: 10/26/20 TIME: 13:51 Chief Complaint Chief Complaint Dysuria History of Present Illness History of Present Illness 85-year-old male with past medical history of depression, anxiety, dyslipidemia and BPH who presents to the ED with complaints of difficulty urinating. This has been occurring for the last several weeks. Patient complains of burning upon urination but denies any suprapubic tenderness or abdominal pain. Denies any hematuria, bloody stools, chest pain, shortness of breath or headaches or syncope. Upon arrival to the ED patient was found to have elevated heart rate to the 160s. Telemonitoring and EKG did showed atrial flutter. Cardiology was consulted. Patient was given several doses of diltiazem boluses and there was some improvement down to the 120s. Eventually patient was kept on diltiazem drip. 10/21/20 Evaluated at bedside. Patient was evaluated. Rivas's catheter is in place colored urine. Continue antibiotics for UTI treatment. Cardiology following for atrial flutter. Starting low-dose Eliquis today for stroke prevention. Otherwise continue current plan. Plan of care discussed with bedside RN. 10/22/20 Patient evaluated at bedside. Changing antibiotics cefepime to Rocephin. Will need urology follow-up after discharge. Otherwise doing well this morning. He does remain significantly tachycardic on telemetry this morning but appeared to have a normal rate overnight. Cardiology and infectious disease following. Plan of care discussed with bedside nurse. Hopeful for discharge before the weekend. 10/23 Patient evaluated at bedside. Still having some runs of a flutter and tachycardia when evaluated. He remains asymptomatic overall. Continuing Rocephin treatment. Patient requesting transfer to facility with urology consultants; informed him that given the current state of the world beds in the area are almost nonexistent and this would not be an accepted transfer and that he would be better off following with them as an outpatient 10/26: Patient seen and evaluated. Reportedly cardiology plans to cardiovert him in 1-2 months. He is still being treated for acute cystitis. Due to concerns for masslike lesion within the bladder, referral has been placed to for possible transfer, but is at capacity cannot accept inpatient transfers at this time. He will need to follow-up with urology as outpatient, but patient feels uncomfortable that he will be able to do this on his own. Social workers place referral to [facility] to evaluate patient today. If is able to arrange for discharge home with home health and oral antibiotics to complete his regimen outpatient. Vitals/I&O Vitals/I&O: Vital Signs Date Time Temp Pulse Resp B/P (MAP) Pulse Ox O2 Delivery O2 Flow Rate FiO2 10/26/20 11:26 97.8 79 18 101/64 (76) 96 Room Air 97.8 I & O 10/25/20 10/25/20 10/26/20 15:00 23:00 07:00 Intake Total 620 ml 360 ml Output Total 1350 ml 550 ml Balance 620 ml -990 ml -550 ml Physical Exam Physical Exam: GENERAL: Alert, oriented x 3, lying in bed comfortably, in no acute distress. HEENT: Normocephalic, atraumatic. Anicteric. NECK: Supple. No JVD. LUNGS: Clear bilaterally. No wheezing. HEART: S1, S2. Tachycardia, No gallops or murmurs. ABDOMEN: Soft, nontender, nondistended. No rebound or guarding. : rivas in place EXTREMITIES: No edema or cyanosis MUSCULOSKELETAL: No joint swelling. No decrease in range of motion. CENTRAL NERVOUS SYSTEM: Alert, oriented x 3, grossly nonfocal. PSYCHIATRIC: Cooperative, calm. LINES: looks clean. General: Alert, Oriented X3, Cooperative, No acute distress Heart: Other (irregular rhythm and rate) Lungs: Clear Abdomen: Soft, No tenderness Extremities: No edema, Normal pulses Skin: No significant lesion Labs Labs: Laboratory Tests Test 10/26/20 03:55 10/26/20 13:20 White Blood Count 5.0 x10^3/uL (4.0-11.0) Red Blood Count 5.13 x10^6/uL (4.30-5.70) Hemoglobin 12.1 g/dL (13.0-17.5) Hematocrit 38.2 % (39.0-53.0) Mean Corpuscular Volume 74 fL (79-100) Mean Corpuscular Hemoglobin 24 pg (25-35) Mean Corpuscular Hemoglobin Concent 32 g/dL (31-37) Red Cell Distribution Width 14.9 % (11.5-14.5) Platelet Count 395 x10^3/uL (140-400) Neutrophils (%) (Auto) 53 % (31-73) Lymphocytes (%) (Auto) 33 % (24-48) Monocytes (%) (Auto) 12 % (0-9) Eosinophils (%) (Auto) 1 % (0-3) Basophils (%) (Auto) 1 % (0-3) Neutrophils # (Auto) 2.6 x10^3/uL (1.8-7.7) Lymphocytes # (Auto) 1.6 x10^3/uL (1.0-4.8) Monocytes # (Auto) 0.6 x10^3/uL (0.0-1.1) Eosinophils # (Auto) 0.1 x10^3/uL (0.0-0.7) Basophils # (Auto) 0.0 x10^3/uL (0.0-0.2) Sodium Level 141 mmol/L (136-145) Potassium Level 4.0 mmol/L (3.5-5.1) Chloride Level 107 mmol/L (98-107) Carbon Dioxide Level 29 mmol/L (21-32) Anion Gap 5 (6-14) Blood Urea Nitrogen 5 mg/dL (8-26) Creatinine 0.9 mg/dL (0.7-1.3) Estimated GFR (Cockcroft-Gault) 97.0 BUN/Creatinine Ratio 6 (6-20) Glucose Level 98 mg/dL (70-99) Calcium Level 9.1 mg/dL (8.5-10.1) Total Bilirubin 0.5 mg/dL (0.2-1.0) Aspartate Amino Transf (AST/SGOT) 42 U/L (15-37) Alanine Aminotransferase (ALT/SGPT) 72 U/L (16-63) Alkaline Phosphatase 77 U/L (46-116) Total Protein 6.2 g/dL (6.4-8.2) Albumin 2.6 g/dL (3.4-5.0) Albumin/Globulin Ratio 0.7 (1.0-1.7) SARS-CoV-2 Antigen (Rapid) Negative (NEGATIVE) Assessment and Plan Assessmemt and Plan Problems Medical Problems: (1) Atrial flutter Status: Acute (2) Atrial flutter with rapid ventricular response Status: Acute (3) UTI (urinary tract infection) Status: Acute Comment Review of Relevant I have reviewed the following items veto (where applicable) has been applied. Justifications for Admission Other Justification UTI STEVE MARIE MD Oct 26, 2020 13:58
--- NOTE | 2020-10-26 15:25 | PDOC3 ---
Discharge Summary Visit Information Date of Admission: Oct 20, 2020 Date of Discharge: Oct 26, 2020 Final Diagnosis Problems Medical Problems: (1) Atrial flutter Status: Acute (2) Atrial flutter with rapid ventricular response Status: Acute (3) UTI (urinary tract infection) Status: Acute Brief Hospital Course Allergies Allergies Coded Allergies Type Severity Reaction Last Updated Verified Penicillins Allergy Intermediate RASH 10/26/14 Yes aspirin Adverse Reaction Mild Nausea 07/14/20 Yes Vital Signs Vital Signs Date Time Temp Pulse Resp B/P (MAP) Pulse Ox O2 Delivery O2 Flow Rate FiO2 10/26/20 11:26 97.8 79 18 101/64 (76) 96 Room Air 97.8 Lab Results Laboratory Tests Test 10/25/20 07:10 10/25/20 07:15 10/26/20 03:55 10/26/20 13:20 White Blood Count 5.2 x10^3/uL (4.0-11.0) 5.0 x10^3/uL (4.0-11.0) Red Blood Count 5.37 x10^6/uL (4.30-5.70) 5.13 x10^6/uL (4.30-5.70) Hemoglobin 13.0 g/dL (13.0-17.5) 12.1 g/dL (13.0-17.5) Hematocrit 39.8 % (39.0-53.0) 38.2 % (39.0-53.0) Mean Corpuscular Volume 74 fL (79-100) 74 fL (79-100) Mean Corpuscular Hemoglobin 24 pg (25-35) 24 pg (25-35) Mean Corpuscular Hemoglobin Concent 33 g/dL (31-37) 32 g/dL (31-37) Red Cell Distribution Width 14.9 % (11.5-14.5) 14.9 % (11.5-14.5) Platelet Count 403 x10^3/uL (140-400) 395 x10^3/uL (140-400) Neutrophils (%) (Auto) 58 % (31-73) 53 % (31-73) Lymphocytes (%) (Auto) 27 % (24-48) 33 % (24-48) Monocytes (%) (Auto) 13 % (0-9) 12 % (0-9) Eosinophils (%) (Auto) 1 % (0-3) 1 % (0-3) Basophils (%) (Auto) 1 % (0-3) 1 % (0-3) Neutrophils # (Auto) 3.0 x10^3/uL (1.8-7.7) 2.6 x10^3/uL (1.8-7.7) Lymphocytes # (Auto) 1.4 x10^3/uL (1.0-4.8) 1.6 x10^3/uL (1.0-4.8) Monocytes # (Auto) 0.7 x10^3/uL (0.0-1.1) 0.6 x10^3/uL (0.0-1.1) Eosinophils # (Auto) 0.1 x10^3/uL (0.0-0.7) 0.1 x10^3/uL (0.0-0.7) Basophils # (Auto) 0.0 x10^3/uL (0.0-0.2) 0.0 x10^3/uL (0.0-0.2) Segmented Neutrophils % 58 % (35-66) Band Neutrophils % 1 % (0-9) Lymphocytes % 28 % (24-48) Monocytes % 11 % (0-10) Eosinophils % 1 % (0-5) Metamyelocytes % 1 % (0-0) Platelet Estimate Adequate (ADEQUATE) Sodium Level 142 mmol/L (136-145) 141 mmol/L (136-145) Potassium Level 4.8 mmol/L (3.5-5.1) 4.0 mmol/L (3.5-5.1) Chloride Level 104 mmol/L (98-107) 107 mmol/L (98-107) Carbon Dioxide Level 28 mmol/L (21-32) 29 mmol/L (21-32) Anion Gap 10 (6-14) 5 (6-14) Blood Urea Nitrogen 7 mg/dL (8-26) 5 mg/dL (8-26) Creatinine 0.9 mg/dL (0.7-1.3) 0.9 mg/dL (0.7-1.3) Estimated GFR (Cockcroft-Gault) 97.0 97.0 BUN/Creatinine Ratio 8 (6-20) 6 (6-20) Glucose Level 96 mg/dL (70-99) 98 mg/dL (70-99) Calcium Level 9.2 mg/dL (8.5-10.1) 9.1 mg/dL (8.5-10.1) Total Bilirubin 0.8 mg/dL (0.2-1.0) 0.5 mg/dL (0.2-1.0) Aspartate Amino Transf (AST/SGOT) 58 U/L (15-37) 42 U/L (15-37) Alanine Aminotransferase (ALT/SGPT) 100 U/L (16-63) 72 U/L (16-63) Alkaline Phosphatase 70 U/L (46-116) 77 U/L (46-116) Total Protein 6.7 g/dL (6.4-8.2) 6.2 g/dL (6.4-8.2) Albumin 2.7 g/dL (3.4-5.0) 2.6 g/dL (3.4-5.0) Albumin/Globulin Ratio 0.7 (1.0-1.7) 0.7 (1.0-1.7) SARS-CoV-2 Antigen (Rapid) Negative (NEGATIVE) Laboratory Tests Test 10/26/20 03:55 10/26/20 13:20 White Blood Count 5.0 x10^3/uL (4.0-11.0) Red Blood Count 5.13 x10^6/uL (4.30-5.70) Hemoglobin 12.1 g/dL (13.0-17.5) Hematocrit 38.2 % (39.0-53.0) Mean Corpuscular Volume 74 fL (79-100) Mean Corpuscular Hemoglobin 24 pg (25-35) Mean Corpuscular Hemoglobin Concent 32 g/dL (31-37) Red Cell Distribution Width 14.9 % (11.5-14.5) Platelet Count 395 x10^3/uL (140-400) Neutrophils (%) (Auto) 53 % (31-73) Lymphocytes (%) (Auto) 33 % (24-48) Monocytes (%) (Auto) 12 % (0-9) Eosinophils (%) (Auto) 1 % (0-3) Basophils (%) (Auto) 1 % (0-3) Neutrophils # (Auto) 2.6 x10^3/uL (1.8-7.7) Lymphocytes # (Auto) 1.6 x10^3/uL (1.0-4.8) Monocytes # (Auto) 0.6 x10^3/uL (0.0-1.1) Eosinophils # (Auto) 0.1 x10^3/uL (0.0-0.7) Basophils # (Auto) 0.0 x10^3/uL (0.0-0.2) Sodium Level 141 mmol/L (136-145) Potassium Level 4.0 mmol/L (3.5-5.1) Chloride Level 107 mmol/L (98-107) Carbon Dioxide Level 29 mmol/L (21-32) Anion Gap 5 (6-14) Blood Urea Nitrogen 5 mg/dL (8-26) Creatinine 0.9 mg/dL (0.7-1.3) Estimated GFR (Cockcroft-Gault) 97.0 BUN/Creatinine Ratio 6 (6-20) Glucose Level 98 mg/dL (70-99) Calcium Level 9.1 mg/dL (8.5-10.1) Total Bilirubin 0.5 mg/dL (0.2-1.0) Aspartate Amino Transf (AST/SGOT) 42 U/L (15-37) Alanine Aminotransferase (ALT/SGPT) 72 U/L (16-63) Alkaline Phosphatase 77 U/L (46-116) Total Protein 6.2 g/dL (6.4-8.2) Albumin 2.6 g/dL (3.4-5.0) Albumin/Globulin Ratio 0.7 (1.0-1.7) SARS-CoV-2 Antigen (Rapid) Negative (NEGATIVE) Brief Hospital Course Mr. Olguin is a 85 old male who presented with acute cystitis, new onset A. fib, BPH, bilateral renal cysts. Consultation placed to cardiology and ID. He was treated with IV antibiotics with improvement. He was recommended Eliquis for A. fib stroke prophylaxis. He was recommended to follow-up with cardiology for outpatient cardioversion. Stable for discharge home with home health. Discharge Information Condition at Discharge: Stable Disposition/Orders: D/C to Home w/ HH Scheduled Hydrochlorothiazide (Hydrochlorothiazide Tablet) 12.5 Mg Tablet, 12.5 MG PO QAM for blood pressure, (Reported) Entered as Reported by: EDGAR ROOT on 05/20/202027 Lisinopril (Lisinopril) 20 Mg Tablet, 20 MG PO DAILY for Hypertension, (Reported) Entered as Reported by: EDGAR ROOT on 05/20/202027 Last Action: Continued on 10/20/201533 by PAN LOMBARDO MD Lovastatin (Lovastatin) 20 Mg Tablet, 20 MG PO QHS for Cholesterol, (Reported) Entered as Reported by: EDGAR ROOT on 05/20/202027 Melatonin (Melatonin) 1 Mg Tablet, 1 TAB PO QHS for sleep for 30 Days, #30 Ref 0 (Reported) Entered as Reported by: JORJE PEREZ on 07/14/20 1031 Metoprolol Succinate (Metoprolol Succinate ( Xl )) 25 Mg Tab.er.24h, 50 MG PO DAILY for Hypertension, (Reported) Entered as Reported by: EDGAR ROOT on 05/20/202027 Last Action: Continued on 10/20/201533 by PAN LOMBARDO MD Tamsulosin Hcl (Flomax) 0.4 Mg Cap.er.24h, 0.4 MG PO QHS for bph for 90 Days, #90 Prescribed by: NAY DING on 05/22/20 1150 Last Action: Continued on 10/20/201533 by PAN LOMBARDO MD Terazosin Hcl (Terazosin Hcl) 5 Mg Capsule, 5 MG PO DAILY for BPH, (Reported) Entered as Reported by: EDGAR ROOT on 05/20/202027 Justicifation of Admission Dx: Justifications for Admission: Justification of Admission Dx: Yes STEVE MARIE MD Oct 26, 2020 15:25
[2020-10-26] MEDS ORDERED: APIX2.5T PO (15:28)
[2020-10-26] MEDS ORDERED: CEFD300C PO (15:28)
[2020-10-26 15:31] VITALS: BP 111/67
[2020-10-26] MEDS ORDERED: DILT180C29 PO (15:37)
[2020-10-26] MEDS ORDERED: METO-239 PO (15:37)
--- NOTE | 2020-10-26 15:40 | SNU/HH DC ---
DISCHARGE WITH HOME HEALTH DISCHARGE INFORMATION: Discharge Date: Oct 26, 2020 Final Diagnosis: Problems Medical Problems: (1) Atrial flutter Status: Acute (2) Atrial flutter with rapid ventricular response Status: Acute (3) UTI (urinary tract infection) Status: Acute Condition on Discharge: Stable CODE STATUS: Code Status: Full HOME HEALTH: Face to Face: I certify this patient is under my care and that I, or a nurse practitioner or physician's audiology assistant working with me, had a face to face encounter that meets the physician face to face encounter requirements with this patient on 10/26/2020. RN For Eval/Treatment: Yes Physical Therapy For: Evalulation/Treatment Occupational Therapy For: Evaluation/Treatment Home Health Aide For: Self-care Pt Meets Homebound Status: Poor cognition, Unable to negotiate home POST DISCHARGE ORDERS: Activity Instructions for Disc: Activity as tolerated Weight Bearing Status after Di: As tolerated DIET AFTER DISCHARGE: Cardiac Wound/Incision Care: Routine catheter care (Maintain Suh catheter until he can be seen by urology) FOLLOW-UP: Follow up with: Will need to make an appointment with urology at [phone] Follow Up With: Maintain Suh catheter until he can be seen by urology TREATMENT/EQUIPMENT ORDERS: Adaptive Equipment Issued: None CERTIFICATION STATEMENT: Certification Statement: Certification Statement: Based on the above finding, I certify that this patient is confined to the home and needs intermittent shelter care, physical therapy and/or speech therapy, or continues to need occupational therapy.~ This patient is under my care, and I have initiated the establishment of the plan of care.~ This patient will be followed by myself or a community physician who will periodically review the plan of care. Home Meds Active Scripts Diltiazem Hcl (DILTIAZEM 24HR CD) 180 Mg Cap.er.24h, 180 MG PO DAILY for Afib, #30 CAP.SR 2 Refills Prov:STEVE MARIE MD 10/26/20 Metoprolol Succinate (METOPROLOL SUCCINATE ( XL )) 25 Mg Tab.er.24h, 100 MG PO DAILY for Afib, #30 TAB.SR 2 Refills Prov:STEVE MARIE MD 10/26/20 Apixaban (ELIQUIS) 2.5 Mg Tablet, 2.5 MG PO BID for Afib for 30 Days, #60 TAB 3 Refills Prov:STEVE MARIE MD 10/26/20 Cefdinir (CEFDINIR) 300 Mg Capsule, 300 MG PO BID for UTI for 10 Days, #20 CAP Prov:STEVE MARIE MD 10/26/20 Tamsulosin Hcl (FLOMAX) 0.4 Mg Cap.er.24h, 0.4 MG PO QHS for bph for 90 Days, #90 CAP.SR Prov:CASTLE,NIAL K III DO 05/22/20 Reported Medications Melatonin (MELATONIN) 1 Mg Tablet, 1 TAB PO QHS for sleep for 30 Days, #30 TAB 0 Refills 07/14/20 Terazosin Hcl (TERAZOSIN HCL) 5 Mg Capsule, 5 MG PO DAILY for BPH 05/20/20 Hydrochlorothiazide (HYDROCHLOROTHIAZIDE TABLET) 12.5 Mg Tablet, 12.5 MG PO QAM for blood pressure 05/20/20 Lisinopril (LISINOPRIL) 20 Mg Tablet, 20 MG PO DAILY for Hypertension 05/20/20 Lovastatin (LOVASTATIN) 20 Mg Tablet, 20 MG PO QHS for Cholesterol 05/20/20 Discontinued Reported Medications Metoprolol Succinate (METOPROLOL SUCCINATE ( XL )) 25 Mg Tab.er.24h, 50 MG PO DAILY for Hypertension 05/20/20 STEVE MARIE MD Oct 26, 2020 15:40
--- NOTE | 2020-10-26 17:00 | NUR ---
Pt left unit at 1700 by wheelchair via private vehicle. Pt's IV removed without complication, VSS. Rivas remains in place. Discharge paperwork discussed with pt, including medications, instructions, and follow-up. Demonstration provided to pt on use of rivas catheter with leg bag. Graduated cylinder provided to pt. Pt verbalizes understanding, additional questions addressed. Home health to follow-up with pt.
[2020-10-26] MEDS ORDERED: CEFDINIR 300 MG CAPSULE PO SCH (21:00)
== END 2020-10-26 17:07 | disposition home health service (06) | DRG 725 ==
LOC: ER 09:46 → ED HOLD 11:18 → 5 SOUTH 15:30
PROVIDERS: ADMIT Internal Medicine; ATTEND Internal Medicine
DX: N40.1 Benign prostatic hyperplasia with lower urinary tract symptoms (principal); N17.0 Acute kidney failure with tubular necrosis; N30.00 Acute cystitis without hematuria; I48.92 Unspecified atrial flutter; I24.8 Other forms of acute ischemic heart disease; B96.4 Proteus (mirabilis) (morganii) as the cause of diseases classified elsewhere; E78.00 Pure hypercholesterolemia, unspecified; E78.5 Hyperlipidemia, unspecified; I11.9 Hypertensive heart disease without heart failure; I48.91 Unspecified atrial fibrillation; N28.1 Cyst of kidney, acquired; I45.10 Unspecified right bundle-branch block; R33.8 Other retention of urine; Z79.899 Other long term (current) drug therapy; Z82.49 Family history of ischemic heart disease and other diseases of the circulatory system; Z87.440 Personal history of urinary (tract) infections; Z88.0 Allergy status to penicillin; F32.9 Major depressive disorder, single episode, unspecified; F41.9 Anxiety disorder, unspecified; Z88.8 Allergy status to other drugs, medicaments and biological substances
CPT/HCPCS: 36415; 71045; 76700; 76770; 80048; 80053; 80061; 81001; 83735; 83880; 84100; 84443; 84484; 85007; 85025; 87077; 87086; 87186; 87426; 93005; 93306; 96361; 96365; 96375; 96376; J0692; J0696; J1160; J1644; J1650; J1956; J3490; J7030; J7120; 99285-25; G0378